=== PATIENT | female | born 2005 | race Caucasian/White ===

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

== ENCOUNTER 2023-03-20 09:00 | Outpatient (RCR) | payer OTHER, SELFPAY ==
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
--- NOTE | 2023-03-20 11:10 | BH.SGPN.GN ---
Behaviors/Verbalizations/Mental Status: []Pt alert and oriented, casually dressed and groomed. Eye contact good. Motor activity appropriate. Speech within normal limits. Affect congruent, mood depressed and anxious. Thoughts linear, logical, no signs of hallucinations or delusions. Client Response/Progress/Benefit: []Pt responded well to session AEB contributing to discussion, taking notes, and listening attentively to others. Group discussed the benefits of managed anger and anger as a secondary emotion. Pt shared perspective on personal benefits of anger as facilitating change/advocacy. Pt completed worksheet on anger triggers and personal warning signs of anger. Pt identified their biggest triggers as disrespected boundaries, people taking things without asking, and repeating themself. Appeared to benefit from increased knowledge of the anger cycle as well as personal triggers. Pt to continue IOP to challenge distorted thoughts, improve mood stability, and prevent decompensation. Narrative Note: []
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
[2023-03-21 10:10] VITALS: BP 118/77; PULSE 113
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
--- NOTE | 2023-03-21 13:05 | BH.DR.ITP ---
Initial Treatment Plan Patient Information Visit Information: ADMISSION DATE: EXPECTED LOS: 4-6 weeks Problems/Symptoms Problem #1:: Erratic moods Symptom:: Sadness, irritability, emotional outbursts, low energy, guilt, passive thoughts of , suicidal ideation Problem #2:: Anxiety Symptom:: Worry, panic attack, avoidance
--- NOTE | 2023-03-22 10:10 | BH.SGPN.GN ---
Behaviors/Verbalizations/Mental Status: []Pt alert and oriented, casually dressed and groomed. Eye contact good. Motor activity appropriate. Speech within normal limits. Affect congruent, mood euthymic and anxious. Thoughts linear, logical, no signs of hallucinations or delusions. Client Response/Progress/Benefit: []Pt was an active participant AEB providing input and was actively taking notes. Did well to participate and provide suggestions in group activity. Connected with the topic of pitfalls and listened to group discussion on internal and external barriers that prevent from choosing a healthier path to mental wellness. Group worked together to identify examples of personal internal pitfalls and pt identified hers as not communicating boundaries, inconsistency, and procrastinating. Pt benefited from group as Pt learned to better identify and normalize potential barriers to improving mental health symptoms. Pt will ?continue IOP tx to prevent decompensation, increase mood management skills, and continue to promote thought challenging. Narrative Note: []
--- NOTE | 2023-03-22 11:10 | BH.SGPN.GN ---
Behaviors/Verbalizations/Mental Status: []Pt alert and oriented, casually dressed and groomed. Eye contact fair. Motor activity appropriate. Speech within normal limits. Affect congruent. Mood anxious and dysthymic. Thoughts linear, logical, no signs of hallucinations or delusions. Client Response/Progress/Benefit: []Pt was an active participant AEB contribution to discussion, taking notes, and willingness to engage in group activity. Connected with the topic of pitfalls and listened to group discussion on internal and external barriers that prevent from choosing a healthier path to mental wellness. Group worked together to identify examples of internal pitfalls. Pt identified personal pitfalls to include: self-sabotage, inconsistency in setting boundaries, procrastination, isolation, pessimism, and not taking care of self. .Pt benefited from group as Pt learned to better identify and normalize potential barriers to improving mental health symptoms. Pt to continue IOP to increase healthy coping, challenge distortions, and prevent decompensation.
--- NOTE | 2023-03-26 09:00 | BH.SGPN.GN ---
Behaviors/Verbalizations/Mental Status: [] Eye contact is good. Motor activity is restless. Appearance is casual. Speech is Appropriate. Mood is anxious. Affect is congruent. Thoughts are linear and logical. No evidence of psychosis. Reviewed daily check in sheet and no reports of suicidal ideations or intent Client Response/Progress/Benefit: [] Pt was an active participant in group discussion. Attentive. Provided appropriate feedback. Daily symptom tracker notes 10/01 for anxiety and depression. Tells that group that she was off yesterday and spent most of her day in bed. No overt trigger noted. Reports being more fatigued in general however did go out with her friends yesterday. While she was social she identified that I don't like my friends. Discussion on the impact of unhealthy connections and fear of leaving because its comfortable. Pt has significant insight into coping skills and mental health AEB feedback given to peers, however may struggle to take action. Continuing to struggle with mood management AEB by isolating for a majority of the weekend. Benefited from group support, encouragement, and feedback. Will continue in IOP to prevent decompensation, stablize mood, increase healthy coping, and improve functioning. Narrative Note: []
--- NOTE | 2023-03-26 10:15 | BH.SGPN.GN ---
Behaviors/Verbalizations/Mental Status: []Pt alert and oriented, neatly dressed and groomed. Eye contact good. Motor activity appropriate. Speech within normal limits. Affect congruent, mood euthymic. Thoughts linear, logical, no signs of hallucinations or delusions. Client Response/Progress/Benefit: [] Pt was an active participant in group discussions and activities. Attentive during psychoeducation. Pt engaged during interactive discussion in which the group defined self-care and discussed its benefits. ?Worked with peers in a small group to identify myths related to self-care which included; Self-care means you are not productive, you have to earn self-care, and it is selfish. Pt participated in small groups where they worked to bust these self-care myths. Benefited from increased awareness of self-care, its benefits, and the consequences of not utilizing self-care strategies. Pt shared she often struggles with self-care because pt feels ?like I can only do it if it benefits others.? Will continue IOP tx to prevent decompensation, monitor mood, and increase emotional regulation skills. ? Narrative Note: []
--- NOTE | 2023-03-26 11:15 | BH.SGPN.GN ---
Behaviors/Verbalizations/Mental Status: []Pt alert and oriented, neatly dressed and groomed. Eye contact good. Motor activity appropriate. Speech within normal limits. Affect congruent, mood euthymic. Thoughts linear, logical, no signs of hallucinations or delusions. Client Response/Progress/Benefit: [] Pt engaged participant AEB completing self-assessment worksheet and providing input throughout discussion. Participated in group discussion on the various areas of self-care. Pt completed worksheet identifying current self-care practices and what self-care activities pt wants to start using. Pt selected social self-care to begin practicing more consistently. Pt plans to do this by scheduling time each day to talk to people in her life ?that are good for me.? Appeared to benefit from completing the self-care evaluation and gaining insights into current self-care practices, as well as identifying areas in which pt would like to improve upon.? Pt will continue IOP tx to prevent decompensation, monitor medication and mood, and improve daily functioning. Narrative Note: []
== END 2023-03-26 23:59 ==
LOC: BHIOP 09:00
PROVIDERS: PCP Nurse Practitioner Family; Referring Provider Psychiatry & Neurology Psychiatry; Visit Provider Psychiatry & Neurology Psychiatry
DX: F31.9 Bipolar disorder, unspecified (principal); F41.9 Anxiety disorder, unspecified
CPT/HCPCS: S9480; 90832; 90853

== ENCOUNTER 2023-03-27 07:19 | Outpatient (RCR) | payer OTHER, SELFPAY ==
--- NOTE | 2023-03-22 09:00 | BH.SGPN.GN ---
Behaviors/Verbalizations/Mental Status: [] Eye contact is good. Motor activity is appropriate. Appearance is casual. Speech is Appropriate. Mood is anxious. Affect is congruent. Thoughts are linear and logical. No evidence of psychosis. Reviewed daily check in sheet and pt reports 1/5 for suicidal thoughts and 0/5 for intent. Baseline Client Response/Progress/Benefit: [] Active participant in group discussion. Attentive. Daily symptom tracker notes 3/5 for anxiety and depression. 1/5 ? SI. Provided appropriate feedback. Emotion for today is ?guilty?. Pt spoke about some growth in the past few days however was not very specific. Reports ? I used lessons here to calm myself and come to terms with some things?. States that she is getting ?clarity? on aspects of her life which is improving her overall mental health. Increased skills have led to increased confidence to manage emotions. Reports feeling ?content? and ?with a purpose?. Progress noted per pt report. Benefited from group support, encouragement, and feedback. Will continue in IOP to stabilize mood, improve functioning, and stabilize mood. Narrative Note: []
[2023-03-27 00:43] VITALS: BP 118/77; PULSE 113
--- NOTE | 2023-03-27 09:05 | BH.SGPN.GN ---
Behaviors/Verbalizations/Mental Status: [] Pt alert and oriented, neatly dressed and groomed. Eye contact good. Motor activity appropriate. Speech within normal limits. Affect full, mood euthymic. Thoughts linear, logical, no signs of hallucinations or delusions. Reviewed pt?s symptom tracker, no risk for suicidal ideation, plan, or intent 03/27/23 Client Response/Progress/Benefit: []Pt responded well to session, attentive and engaged. Pt reports feeling stable this morning as pt was on time today for IOP and practiced self-care this morning. Pt shared she is often critical of herself and pt is trying to practice more self-compassion. Pt struggles with mood instability and emotional dysregulation, but pt is trying to follow people's advice. Pt's stressor today is her hair not doing what pt wants it to do. Pt appeared to benefit from reflecting on their application of coping skills. Pt will continue IOP tx to prevent decompensation, improve emotional regulation skills, and reduce negative thinking patterns. Narrative Note: []
--- NOTE | 2023-03-27 10:05 | BH.SGPN.GN ---
Behaviors/Verbalizations/Mental Status: [] Eye contact is good. Motor activity is appropriate. Appearance is casual. Speech is Appropriate. Mood is anxious. Affect is congruent. Thoughts are linear and logical. No evidence of psychosis Client Response/Progress/Benefit: [] Pt was an active participant in group discussions. Attentive during psychoeducation on 4 Communication Styles (Passive, Passive-Aggressive, Aggressive, Assertive). Convened in small group and participated during interactive discussion on benefits and disadvantages of each communication style. Majority of this group was based in introducing and educating on communication styles. Pt believes that he is more often passive with people that she care about. Benefited from increased education and awareness on communication styles and their impact on relationships/mental health. Will continue in IOP to prevent decompensation, stablize moood, increae healthy coping, and improve functioning. Narrative Note: []
--- NOTE | 2023-03-27 11:10 | BH.SGPN.GN ---
Behaviors/Verbalizations/Mental Status: []Client alert and oriented, casually dressed and appropriately groomed. Eye contact fair. Motor activity appropriate. Speech WNL. Affect constricted, mood anxious. Thoughts linear, logical, no signs of hallucinations or delusions. Client Response/Progress/Benefit: []Client responded well to session AEB client listening attentively to others and providing input during group discussion on the pay offs and costs of the different communication styles. Client able to connect how current communication style impacts mental health. Client engaged in activity, used assertive communication throughout in order to accomplish task. Connected with peers comments about importance of using assertive communication. Client shared she struggles with communicating her feelings when someone has hurt her feelings which often leads her to lash out. Client stated she wants to work on communication by telling three people why she lashed out at them. Client seemed to benefit from increasing awareness of healthy strategies to improve communication. Will continue IOP tx to stabilize mood, increase consistent use of healthy coping skills, and prevent decompensation.
--- NOTE | 2023-03-28 10:10 | BH.SGPN.GN ---
Behaviors/Verbalizations/Mental Status: [] Eye contact is fair. Motor activity is appropriate. Appearance is casual. Speech is Appropriate. Mood is dysthymic. Affect is constricted. Thoughts are linear and logical. No evidence of psychosis or hallucinations. Client Response/Progress/Benefit: [] Pt was an active participant in group discussion and activity. Attentive during psychoeducation. Along with peers was able to identify barriers to taking action on her mental health which included: fear of failure, the unknown, change, one's environment, past negative experiences, being passive, and fear of vulnerability. Identified several symptoms and stressors that she feels are holding her back from progress such as denial, procrastination, fear of failure, not setting goals, and avoidance. Benefited from increased self-awareness of obstacles. Will continue in IOP to improve mood stability, increase consistent use of skills, and prevent decompensation.
--- NOTE | 2023-03-28 11:10 | BH.SGPN.GN ---
Behaviors/Verbalizations/Mental Status: []Pt alert and oriented, disheveled appearance. Eye contact fair. Motor activity appropriate. Speech within normal limits. Affect congruent, mood depressed. Thoughts linear, logical, no signs of hallucinations or delusions. Client Response/Progress/Benefit: []Pt responded well to session, taking notes and participating in worksheet discussion. Pt connected with the zones of action/change and that making sustainable change comes from stepping out of one?s comfort zone into the learning zone. Pt was tearful throughout group and struggled with identifying a goal. Pt stated she had a difficult morning and this triggered a lot of negative self-talk. Pt will meet with individual therapist after group to process current symptoms and stressors. Appeared to benefit from connecting with peers instead of isolating today. Will continue IOP tx to prevent decompensation, monitor mood, and reduce negative thinking patterns. Narrative Note: []
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
--- NOTE | 2023-03-30 09:05 | BH.SGPN.GN ---
Behaviors/Verbalizations/Mental Status: [] Eye contact is good. Motor activity is appropriate. Appearance is casual. Speech is Appropriate. Mood is depressed. Affect is congurent. Thoughts are linear and logical. No evidence of psychosis. Reviewed daily check in sheet and no reports of suicidal ideations or intent. Client Response/Progress/Benefit: [] Participated at times during the group discussion. Attentive. States ? I?m sticking to my daily journal?. ? It helps me regulate my emotions and find clarity?. Also completing daily yoga. Continues to report frequent negative thoughts, erratic moods, and strong urges to isolate. At times she is able to practice opposite-action, however this is inconsistent. Journal helps to reframe and challenge thoughts however very poor self-image. She talked about significant stressors related to ?reaching out to my mom?. Very conflicted relationship and she is fearful that responding to mother my lead to decompensation. The group provided feedback and support which was beneficial. Limited progress as her erratic moods and negative self-talk continues to impact functioning. Will continue in IOP to prevent decompensation, stabilize mood, and improve functioning. Narrative Note: []
--- NOTE | 2023-03-30 10:15 | BH.SGPN.GN ---
Behaviors/Verbalizations/Mental Status: []Pt alert and oriented, neatly dressed and groomed. Eye contact good. Motor activity appropriate. Speech within normal limits. Affect congruent, mood depressed. Thoughts linear, logical, no signs of hallucinations or delusions. Client Response/Progress/Benefit: []Pt was an active?participant in small group discussion. Pt?s group worked together to identify benefits of healthy relationships which include; reduce stress, provide motivation, and fulfill needs. Group identified factors that lead to unhealthy relationships. Pt?s personal factors were ?bringing out the worst in people because of trauma bonding.? Actively participated in group experiential activity and expressed ideas to group. Benefited from increased insight and awareness of benefits of healthy relationships and factors that contribute to unhealthy relationships. Will continue IOP tx to prevent decompensation, improve emotional regulation skills, and monitor mood. Narrative Note: []
--- NOTE | 2023-03-30 11:10 | BH.SGPN.GN ---
Behaviors/Verbalizations/Mental Status: [] Client alert and oriented, casually dressed and groomed. Eye contact good. Motor activity appropriate. Speech within normal limits. Affect congruent, mood depressed, anxious. Thoughts linear, logical, no signs of hallucinations or delusions. Client Response/Progress/Benefit: [] Client responded well to session, engaged and taking notes. Worked with group to identify characteristics of healthy and unhealthy relationships. Attentive during psychoeducation about characteristics of healthy, unhealthy, and abusive relationships. Client stated within their current relationships she does well with communication and honesty. Client reported an area she would like to improve in is communication. Client shared she could so by working to share when agitated more consistently with supports rather than shutting down. Appeared to benefit from identifying area client wants to work on to build healthier relationships. Client to continue IOP to increase healthy coping skills, challenge distortions, and prevent decompensation. Narrative Note: []
--- NOTE | 2023-04-02 09:01 | BH.SGPN.GN ---
Behaviors/Verbalizations/Mental Status: []Pt alert and oriented, casually dressed and groomed. Eye contact good. Motor activity appropriate. Speech within normal limits. Affect congruent, mood content. Thoughts linear, logical, no signs of hallucinations or delusions. Reviewed pt?s symptom tracker, no suicidal ideation reported, denies plan, or active intent as of 04/02/23. Client Response/Progress/Benefit: []Pt responded well to session, open to processing with group and engaged. Pt reports feeling more present than usual this morning and explained that she is excited about an upcoming volunteer orientation. Explained signing up to volunteer with the [employer] and feels this will provide her with more structure as well as an emotional release. Additional win noted as getting to IOP group earlier than she usually does. Pt noted her current stressor as continuing to struggle with social anxiety that leads her to avoid or cancel plans. Seemed to connect with several other participants similar struggles and suggestions on what helps them. Pt appeared to benefit from supportive feedback of the group, as well as reflecting on mental health wins. Pt will continue IOP tx to promote mood stability, improve distress tolerance, and continue to improve functioning. Narrative Note: []
--- NOTE | 2023-04-02 10:15 | BH.SGPN.GN ---
Behaviors/Verbalizations/Mental Status: []Eye contact is fair. Motor activity is appropriate. Appearance is casual. Speech is Appropriate. Mood is anxious, depressed and euthymic. Affect is labile at times. Thoughts are linear and logical. No evidence of psychosis. Client Response/Progress/Benefit: []Pt participated during the group discussion. Attentive during psychoeducation and actively engaged during experiential activity. Participated during interactive discussion on aspects of fixed mindset. Group identified several aspects of fixed mindset which include: inflexible, belief that one cannot grow, absolute thinking, and all of one's skills, traits, and behaviors can't change. Group identified personal examples of fixed thinking in which pt shared personal fixed thoughts as: I'm not good enough, I don't deserve this and I am incompetent, stupid. Benefited from increased understanding of personal fixed mindsets and how they can impact mental health. Will continue in IOP to improve mood stabilization, improve view of self, and prevent decompensation.
--- NOTE | 2023-04-02 11:15 | BH.SGPN.GN ---
Behaviors/Verbalizations/Mental Status: []Pt alert and oriented, neatly dressed and groomed. Eye contact good. Motor activity appropriate. Speech within normal limits. Affect congruent, mood euthymic. Thoughts linear, logical, no signs of hallucinations or delusions. Client Response/Progress/Benefit: []Pt was an active participant during activity and discussion AEB providing some input, connecting with peers, as well as taking notes throughout. Pt did well to engage as group worked on identifying characteristics and benefits of adopting a growth mindset. Worked with fellow participants in reframing the example fixed thoughts into growth mindset thoughts. Pt worked on changing own fixed thought of ?I?m not good enough and I don?t deserve love? to growth thought of ?I wouldn?t tell a loved one this, my best is good enough.? Benefitted from discussing benefits of growth mindset and brainstorming strategies for prompting growth-mindset. Pt appeared to benefit from working in small groups to challenge own thoughts and help peers. Pt will continue IOP tx to reduce negative thinking patterns, prevent further decompensation, and increase distress tolerance skills. Narrative Note: []
--- NOTE | 2023-04-03 10:10 | BH.SGPN.GN ---
Behaviors/Verbalizations/Mental Status: []Pt alert and oriented, appropriate grooming/appearance. Eye contact fair. Motor activity appropriate. Speech within normal limits. Affect congruent, mood anxious. Thoughts linear, logical, no signs of hallucinations or delusions. Client Response/Progress/Benefit: []Pt was an engaged participant AEB taking notes, engaging in small group discussion and listening attentively to others. Attentive during psychoeducation. Contributed during interactive discussions in which peers attempted to define crisis. Pt identified some examples of potential crisis. Group also worked together to identify unhealthy responses to crisis which included: isolation, self-harm, substance abuse, avoidance, and lashing out. Pt identified personal warning signs as: irritability, self-medicating, and extreme negative thoughts. Benefited from increased understanding of crisis and awareness of personal responses to crisis. Pt will continue IOP tx to improve mood stability, increase healthy coping, and prevent decompensation.
--- NOTE | 2023-04-03 11:05 | BH.SGPN.GN ---
Behaviors/Verbalizations/Mental Status: [] Eye contact is good. Motor activity is appropriate. Appearance is casual. Speech is Appropriate. Mood is depressed. Affect is congruent. Thoughts are linear and logical. No evidence of psychosis Client Response/Progress/Benefit: [] Pt was an active participant in group discussions. Attentive during psychoeducation. In small group pt along with peers developed an active plan for their crisis warning signs. Pt identified two crisis warning signs as well as an action plan for each. One crisis warning sign is isolation with an actions plan that involved; go outside, text a loved one, play with pets, ask for help, remind self negative impact of prolonged isolation. Other warning sign was irritability, explosive with an action plan that involved; stepping away from stressor, cleaning, vent to trusted source, breathing. Benefited from increased awareness of crisis warning signs and by developing crisis intervention strategies. Will continue in IOP to prevent decompensation, increase healthy coping skills, and improve functioning. Narrative Note: []
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
--- NOTE | 2023-04-06 10:10 | BH.SGPN.GN ---
Behaviors/Verbalizations/Mental Status: []Eye contact is good. Alert and oriented. Motor activity is appropriate. Appearance is casual. grooming is appropriate. Speech is Appropriate. Mood is anxious and euthymic. Affect is congruent. Thoughts are linear and logical. No evidence of psychosis or hallucinations. Client Response/Progress/Benefit: []Client passive participate AEB providing some contributions, however did appear to listen attentively to others and taking notes throughout. The group identified the impact of emotions on communication such as change in tone, body language, shutting down, misperceiving the communication, and not being able to express oneself. Client shared struggling with shutting down and not communicating when feeling anxious or overwhelmed. During group activity, client struggled with emotion regulation at times in which she felt stress however did well to identify this and process with the group. Client benefited from session by gaining an increased understanding on the importance of managing emotions to improve daily functioning. Client will continue IOP to further improve mood stability, improve use of skills for better symptom management, and prevent decompensation. Narrative Note: []
--- NOTE | 2023-04-06 11:10 | BH.SGPN.GN ---
Behaviors/Verbalizations/Mental Status: []Pt alert and oriented, casually dressed and groomed. Eye contact fair. Motor activity appropriate. Speech within normal limits. Affect labile, mood dysthymic, anxious, and euthymic. Thoughts linear, logical, no signs of hallucinations or delusions. Client Response/Progress/Benefit: [] Pt engaged in session AEB Pt listening attentively to peers and providing input. Attentive during psychoeducation on 4 zones of regulation. Pt able to identify feelings and behaviors for each zone. Pt identified coping skills one can use to support self in each zone. Pt stated she is all over the place when asked which zone she most often experiences. Reported skills can practice when needs to manage emotions in the yellow zone include: journaling, meditation, stepping away, self-compassion, and yoga. Benefited from increased education on zones of regulation or stages of alertness for emotions and healthy coping skills to use for each zone. Will continue IOP tx to stabilize moods, challenge distorted/negative thoughts, and prevent decompensation.
--- NOTE | 2023-04-09 09:10 | BH.SGPN.GN ---
Behaviors/Verbalizations/Mental Status: [] Eye contact is poor. Motor activity is restless. Appearance is casual. Speech is Appropriate. Mood is labile. Affect is labile. Thoughts are linear and logical. No evidence of psychosis. Reviewed daily check in sheet and no reports of suicidal ideations or intent. Client Response/Progress/Benefit: [] Pt participated at times during the group discussion. Daily symptom tracker notes 5 for depression and 2/5 for anxiety. Shared with the group that she is struggling with her mental health in the past few days. Ruminating negative automatic thoughts. A mental health win was that she communicated this to her support. I was overwhelmed but I did it. Reports that she needed to take breaks however feels that I got my point across. She reports negative self-defeating thoughts this AM I'm a fuck-up. She went over a significant stressors over the past week in which she wasn't even able to do simple things. Tearful. Group attempted to reframe, provide support, and challenge negative thoughts however limited benefit. At one point pt shut-down completely and would not talk to peers. Limited progress due to poor emotional regulation. Will continue in IOP to prevent further decompensation, stablize mood, and improve functioning. Narrative Note: []
--- NOTE | 2023-04-09 10:20 | BH.SGPN.GN ---
Behaviors/Verbalizations/Mental Status: []Pt alert and oriented, casually dressed and groomed. Eye contact good. Motor activity appropriate. Speech within normal limits. Affect congruent, mood agitated and depressed. Thoughts linear, logical, no signs of hallucinations or delusions. Client Response/Progress/Benefit: []Pt participated in group discussions. Attentive during psychoeducation on stages of change. Participated during experiential activity. Interactive group discussion on why change is difficult in which group verbalized that change involves the unknown, is scary, leads to uncertainly, makes one feel vulnerable, leads to fear of failure, and triggers the pressure of success. However, pt acknowledged that change can help a person make healthier choices, but it has been hard for pt. Pt benefitted from increased awareness of stages of changes and how emotions impact change. Will continue IOP tx to prevent decompensation, monitor mood, and improve daily functioning. Narrative Note: []
--- NOTE | 2023-04-09 11:20 | BH.SGPN.GN ---
Behaviors/Verbalizations/Mental Status: []Pt alert and oriented, casually dressed and groomed. Eye contact good. Motor activity appropriate. Speech within normal limits. Affect congruent, mood anxious and content. Thoughts linear, logical, no signs of hallucinations or delusions. Client Response/Progress/Benefit: []Pt responded well to session, attentive. Did well to process activity and work with group to relate the strategies used to overcome barriers in the activity to managing change in own life. 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 Pt identified a barrier as self-doubt. Shared following through with this change will improve her confidence and sense of fulfillment. Pt?s goal today is to listen to update her resume. Pt will continue IOP tx to further improve mental health insight, promote continued communication and boundary setting with supports, and prevent decompensation. Narrative Note: []
--- NOTE | 2023-04-11 12:30 | PCM.BH.PN ---
Progress Note Progress Note: History of Present Illness/Interim History: The patient is a 17-year-old female who is seen in follow-up at the [facility] behavioral health IOP program. I last saw the patient 3 weeks ago and at that time the patient had refused to add a mood stabilizer and decrease her Effexor. The patient states that she is still depressed and experiencing scattered and erratic moods and irritability. She states that she has thought over our discussion and feels that her mood instability is limiting her ability to function well. She has low energy, hopelessness and worthlessness. She has not self harmed by hitting herself in the head since 2 to 3 weeks ago. She has passive thoughts that she would not care if she did not wake up. She still has occasional passive suicidal ideation. She denies active suicidal ideation, hallucinations, delusions, homicidal ideation. Current Psychiatric Medications: [] Effexor XR 75 mg p.o. daily (on this for 3 years, dose last changed about 4 months ago); Klonopin last taken a month ago. Mental Status Examination: [] The patient is a 17-year-old female who is very thin and seen wearing a hoodie with the [place] up initially during the interview. She is ambulatory with a normal gait and casually dressed and groomed with good hygiene. She has no psychomotor agitation or retardation. She is cooperative during the interview but her mood at times seems down or like she is ready to burst into tears but then will go back to smiling. Eye contact is poor and the patient looks down through most of the interview. Speech is normal rate and rhythm and fluent with no pressure. Mood is depressed. Affect is full and normal. Thought process is goal-directed and organized. Thought content: There is evidence of passive thoughts of but there is no evidence of suicidal ideation, plan for suicide, homicidal ideation, hallucinations or delusions. Reality testing is intact. Intelligence is average. Judgment is intact. Impulsivity is high. Insight is limited. Diagnoses: [] 1. Bipolar, NOS 2. Anxiety disorder, NOS 3. Strong cluster B traits 4. Primary support, financial and work issues Plan: [] The patient will continue the IOP program at [facility] as the structure, support, education and group therapy will hopefully prevent worsening of the patient's symptoms. She felt safe during the interview and if it anytime she does not feel safe she will let us know or go to the emergency room. Long discussion was had again about the patient's possible bipolar disorder and her mood instability. We discussed again the difference between antidepressant/antianxiety medications and mood stabilizers and in particular discussed the use of second-generation antipsychotics for bipolar depression and eric as mood stabilizers. The patient agrees that she would like to wean her Effexor and agrees to stay start Seroquel. The patient chose Seroquel because she is not sleeping well, has anxiety and wants to gain weight as her primary care doctor is wants her to gain weight. The patient agrees to decrease her Effexor to 37.5 mg p.o. daily and prescription is sent in for this. In addition she will start Seroquel 50 mg p.o. nightly for 7 days and then increase to 100 mg p.o. nightly. Discussed the fact that the patient might have intense dreams and might feel strange while changing medication and she is to let us know if if she has side effects. She will continue to follow-up with her outpatient providers and I will see the patient in follow-up in 1 to 2 weeks.
--- NOTE | 2023-04-11 14:42 | BH.MDN ---
Multi-Disciplinary Note Note 60-min Individual: Time Started:: 11:20 Date: 04/11/23 Purpose of session/treatment goals addressed:: To allow pt a safe space to verbalize and express her emotions and thoughts. Another goal was to de-escalate pt and utilize mindfulness skills. Eye Contact:: Other (intense at times, but then avoidant) Motor Activity:: Restless (pt throwing herself around on the couch at times. Often covering her face with her hoodie. ) Appearance:: Casual Speech:: Tangential, Rapid and Other (loud) Mood:: Irritable and Depressed Affect:: Labile (tearful, laughing, sobbing, aggitated) Staff Interventions:: thought challenging, mindfulness skills, strengths perspective, completed risk assessment / safety planning and other (grounding skills and emotional support) Client Response:: Pt was agitated when she entered session which was triggered by pt forgetting her phone. Pt felt angry with herself because pt had written down what she wanted to talk about and now pt cannot remember. Forgetting things/losing things is a significant trigger for pt's negative core beliefs and it results in pt criticizing herself, shutting down, and becoming emotionally reactive. Pt demonstrated this during session, pt became agitated, restless, began sobbing, and became loud. Pt expressed frustration about her upbringing, trauma, and difficulties in life that have led to pt's mental health issues. Pt shared she feels worthless and believes that she is fundamentally broken. Pt was not aggressive to therapist and responded well to emotional support. Pt benefits from receiving compassion as pt is often extremely hard on herself. Pt utilized deep breathing and used a stress ball to help regulate and calm self down. Pt shared her emotions are this dysregulated on a daily basis and that is one of the reasons pt shared she sleeps most of the day. Pt is hopeful that the mood stabilizer will be helpful as pt has never been on one before. Pt also encouraged to spend time with her cat as this helps pt calm down as well. Discussed additional support options pt could explore as one of pt's stressors today is her lack of support. Pt will be given a handout for [employer] as well. Risks/Concerns:: Pt reports having suicidal ideations that are passive. Protective factors include cat and dad. Denies active SI, plan, or intent. Pt demonstrating significant emotional dysregulation in session and reports this is what happens every day. IOP treatment team is hopeful the addition of Seroquel will help with mood stability. Progress Toward Goals/Plan:: Pt's progress is limited, but pt is consistent with attendance and engaged in treatment. Pt's mood instability is impacting her functioning at home and at IOP, but pt was prescribed Seroquel today which hopefully will help stabilize pt's mood. Pt endorses erratic moods, irritability, crying spells, thought blocking, increased sleep, inability to verbalize thoughts and emotions, severe agitation, worthlessness, feelings of being a burden, and passive SI. Pt plans to start her new medication tonight and will meet with therapist again tomorrow. Pt will continue IOP tx to prevent decompensation, improve daily functioning, and monitor medication changes. Time Stopped:: 12:40
--- NOTE | 2023-04-12 09:05 | BH.SGPN.GN ---
Behaviors/Verbalizations/Mental Status: []Pt alert and oriented, casually dressed and groomed. Eye contact good. Motor activity appropriate. Speech within normal limits. Affect labile, mood anxious, agitated, and depressed. Thoughts linear, logical, no signs of hallucinations or delusions. Reviewed pt?s symptom tracker, no suicidal ideation reported, denies plan, or active intent as of 04/12/23. Client Response/Progress/Benefit: []Pt responded well to session, open to processing with group and engaged. Pt reports feeling irritated this morning because she was unable to identify her emotion prior to checking-in. 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 Discussed looking forward to continuing to take steps towards this goal as it is something she has wanted to do for some time. Current stressor noted as ongoing difficulties in understanding and processing her own thoughts. Pt appeared to benefit from supportive feedback of the group, as well as reflecting on mental health wins. Pt will continue IOP tx to promote mood stability, improve self-compassion, and continue to prevent decompensation. Narrative Note: []
--- NOTE | 2023-04-12 10:10 | BH.SGPN.GN ---
Behaviors/Verbalizations/Mental Status: []Eye contact is good. Motor activity is appropriate. Appearance is casual. Speech is Appropriate. Mood is present. Affect is congruent. Thoughts are linear and logical. No evidence of psychosis. Client Response/Progress/Benefit: []Pt was an active participant in group discussion. Attentive during psychoeducation on SMART goals. Participated in experiential activity. Engaged during interactive discussion on the benefits of setting goals which group identified as; increase self-worth, increase confidence, can motivate us, can lead to personal growth, and can give one a sense of purpose. Participated during interactive discussion on possible obstacles to obtaining goals and pt self-identified barriers as being disorganized and making negative predictions about myself. Benefited from increased understanding of benefits of goals, obstacles to obtaining goals, and methods for setting appropriate goals (SMART goals). Will continue in IOP to prevent decompensation, monitor mood and medication changes, and improve daily functioning. Narrative Note: []
--- NOTE | 2023-04-12 15:09 | BH.MDN_ITS ---
Multi-Disciplinary Note Note 45-min Individual: Time Started:: 11:13 Date: 04/12/23 Purpose of session/treatment goals addressed:: To address pt's marijuana use and identify ways to reduce use and implement healthy coping skills. Eye Contact:: Good Motor Activity:: Restless Appearance:: Casual Speech:: Tangential Mood:: Other (erratic) Affect:: Congruent Thoughts:: Racing, Flight of ideas and No evidence of hallucinations/delusions noted Staff Interventions:: thought challenging, CBT techniques, mindfulness skills, strengths perspective, goal setting and other (discussed ways to reduce marijuana use.) Client Response:: Pt responded well to session, open to meeting with therapist. Pt's affect was brighter today and pt was less agitated. Pt brought her journal today and pt had her phone which helped pt feel more focused. Pt stated she wants to address her marijuana use as pt sees that it is keeping pt from utilizing healthy coping skills to manage anxiety and it reduces her motivation. Pt has been smoking for years and admits that it is excessive, but pt shared her use was even more extreme in the past. Pt identified some rules for herself to reduce smoking which included not taking her vape pen to work, only smoking flower at home instead of using the vape, doing something calming first before she smokes, and reducing the number of times she vapes in the morning. Pt shared belief these are reasonable goals/rules to have for herself. Pt willing to try the Delay, Distract, Decide skill which will encourage pt to practice a healthy distraction and delay turning to her vape to instantly cope with anxiety. 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 Pt became angry with herself during brainstorming and shared there is a voice in my head that says I hate myself. Pt receptive to gentle thought challenging from therapist. Pt understands that her negative core beliefs and self-talk will take time and conscious effort to change. Pt agrees to start by working on the goal discussed above and taking her new medications before doing too much work on identifying and challenging core beliefs. Risks/Concerns:: Pt denies any active SI, plan, or intent as of 04/12/23. Pt's mood is still erratic, but less intense than it was yesterday during individual session. Pt has not yet picked up her new medication and was encouraged to do this today. Progress Toward Goals/Plan:: Pt's mood is improved today, but pt is still easily triggered and self-reported I just get so overwhelmed so easily. Pt was not tearful during session today which was positive, but she did shut down and become angry with herself at one point. Pt continues to endorse an erratic mood, racing thoughts, sleep issues, passive SI, lack of concentration, worthlessness, and difficulty functioning. Pt is ready to reduce her marijuana use as pt can see it is an issue for managing her anxiety and hindering motivation levels. 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 Pt will meet with therapist twice next week due to severity of pt's symptoms. Pt will continue IOP tx to prevent further decompensation and improve daily functioning. Time Stopped:: 12:00
--- NOTE | 2023-04-12 15:11 | BH.MTP_ITS ---
Treatment Plan Review Demographics Date of Admission:: 03/20/23 Date of Treatment Plan Review:: 04/12/23 Admitting Diagnoses:: Bipolar, NOS; Anxiety disorder, NOS; Strong cluster B traits Current Diagnoses:: Bipolar, NOS; Anxiety disorder, NOS; Strong cluster B traits Patient Status Patient's Response to Treatment:: Pt's response to treatment has been variable. There are times when pt is engaged in group sessions, but pt's engagement is mostly inconsistent. Pt struggles with attendance, often getting to group at least 30 minutes late. Pt also appears to be distracted during group sessions AEB pt's restlessness, talking to self, and at times becoming highly agitated. During individual sessions, pt often becomes loud and has a hard time controlling her body and emotions. Pt admits that she is very easily triggered which makes it challenging to address any unhealthy coping skills or thought patterns pt is using. Status of Current Problems and Symptoms: Symptoms are ongoing and have not resolved since admission. Pt's mood instability, low distress tolerance, and negative thinking patterns are impacting pt's overall functioning and her ability to engage in group. Pt had declined getting on a mood stabilizer, but pt is now receptive. Progress Problem #1: Problem Name:: depression, worthlessness, SI, hopelessness, and irritability Status of Goals:: Objective 1- not complete. Pt can identify many coping skills to help with her depression, anger, and SI. Pt stated that when she gets in negative mindset, pt tells herself that she does not want to get better which results in pt not using these skills. Objective 2- not complete. Pt can identify her negative thinking patterns and unhelpful self-talk statements. However, pt?s core beliefs are so negative that pt becomes highly agitated in session whenever challenging thoughts or giving herself kindness is discussed. Team Recommendations:: Pt was recently prescribed Seroquel to help stabilize pt's mood and improve sleep. Treatment tx encourages pt to consis tently take Seroquel as well as reduce marijuana use. Treatment tx also recommends that pt continue working on her tx goals as pt's scores have not decreased and pt is having a hard time regulating emotions during individual sessions. Problem #2: Problem Name:: Pt will reduce anxiety, avoidance, emotional dysregulation,and ruminations. Status of Goals:: Objective 1- not complete. Pt can identify triggers and warming signs for anxiety, mood dysregulation, and ruminations. Pt admits that she struggles with application of skills. Pt is receptive to getting back into hobbies she enjoyed that once helped regulate pt?s mood. Objective 2- not complete. Pt?s low distress tolerance continues to impact her functioning at IOP and at home. Team Recommendations:: Treatment tx recommends that pt continue working on her tx goals as pt's scores have not decreased and pt is having a hard time regulating emotions during individual sessions. Treatment tx also recommends that pt reduce marijuana use as this could be contributing to pt's memory issues. Pt also could benefit from getting tested for AHDH as pt has a very hard time functioning due to inability to focus on tasks, fidgeting, and difficulty concentrating. Pt was given information for [id number].
--- NOTE | 2023-04-16 10:10 | BH.SGPN.GN ---
Behaviors/Verbalizations/Mental Status: []Client alert and oriented, disheveled in appearance. Eye contact fair. Motor activity appropriate. Speech within normal limits. Affect labile, mood depressed and anxious. Thoughts linear, logical, no signs of hallucinations or delusions. Client Response/Progress/Benefit: []Client was a mostly passive participant in group discussions and activity. Attentive during psychoeducation. Client appeared to engage in activity in which group was able to make connections about how can be easier to find positives in others compared to self. Attentive to interactive discussion on the definition of perspective, how perspective is formed, and why perspective is important in treatment. Client shared her perspective towards treatment today is negative. Stated she is feeling dismissive, stubborn, and close minded today. Connected that current perspective won't get her anywhere. Stated she is being reckless and impulsive. Progress limited. Client struggling with mood instability and difficulty applying skills. Will continue in IOP to improve daily functioning, improve mood stability, and prevent decompensation.
--- NOTE | 2023-04-16 13:50 | BH.MDN_ITS ---
Multi-Disciplinary Note Note 45-min Individual: Time Started:: 09:30 Date: 04/16/23 Purpose of session/treatment goals addressed:: To provide emotional support and practice emotion regulation skills. Another goal was to assess risk. Eye Contact:: Intense Motor Activity:: Restless (sliding off the couch at times) Appearance:: Disheveled Speech:: Tangential, Rapid and Other (loud and yelling at times) Mood:: Irritable and Depressed Affect:: Labile Thoughts:: Racing and Other (pt reports difficulty verbalizing her emotions and often describes her thoughts as it's like screaming in my head.) Staff Interventions:: thought challenging, mindfulness skills, strengths perspective and other (used calming tone to help pt de-escalate. Helped pt sign up for services at [facility] [id number]) Client Response:: Pt entered session calm, but when asked how pt was doing, pt shared I'm better today but I've been absolutely terrible. Pt became agitated and shared that the weekend was terrible and that she had a mental breakdown last night. Pt shared when she woke up she told herself that I have to be a different person today who gives no fucks. Pt reported over the weekend a boy she was in a casual relationship with stopped talking to her when pt set a boundary with him. Pt became angry and shared that she is very frustrated with her mental health and nothing working despite putting everything I can into myself for years. Pt stated she is having suicidal thoughts today and pt shared she has felt this way most of her life. Pt shared that the thoughts have been worse in the past, but she is just feeling very hopeless right now, so pt is struggling to reframe her thinking. Pt took some deep breaths and this helped calm down pt. Pt receptive to gentle thought challenging by therapist and could identify times when she has felt this way in the past and been resilient. Discussed the potential positives of her new medication which pt started on Sunday. Pt became frustrated with herself for missing a day and shared that's even with my dad reminding me and setting an alarm. Pt shared that's why I think I'm neurodivergent and pt was receptive to learning about [facility] [id number]. Pt looked up the website and pt interested in ADHD testing, medication management, and counseling. Pt feels that her potential ADHD is making her mood disorder worse because pt cannot remember things, she is constantly distracted, and she is unable to focus on tasks. Pt completed the form with therapist. Pt left session less agitated and tearful, but pt was still depressed and low energy. Risks/Concerns:: Pt reports having suicidal ideations today triggered by a recent breakup over the weekend and feeling constantly overwhelmed. Pt shared that she is tired of doing everything for myself and it not working. Pt denies that she has any intent or plans. Pt stated having suicidal ideations are baseline and they have been worse in the past. reports ability to maintain safety today. Cat and dad are protective factors. Progress Toward Goals/Plan:: Pt's progress is limited, but pt is consistent with attendance and engaged in treatment. Pt does have difficulty getting to IOP on time and this is a trigger for pt's mood instability. Pt reported she began Seroquel, but did not take it every day this weekend. Pt endorses erratic moods, irritability, crying spells, thought blocking, increased sleep, inability to verbalize thoughts and emotions, severe agitation, worthlessness, feelings of being a burden, and passive SI. Pt will continue IOP tx to prevent decompensation, improve daily functioning, and monitor medication changes. Time Stopped:: 10:10
--- NOTE | 2023-04-16 13:56 | BH.COMM ---
Communication Note Communication with Client Communication Note: Therapist met with pt to check-in as she appeared visibly dysregulated during group. Pt?s individual therapist was running group and therefore was not available to meet with pt. Pt shared feeling overwhelmed and emotionally exhausted due to several ongoing stressors in her life. Pt reports a hx of trauma and difficulties with emotion regulation when feeling triggered. Therapist provided emotional validation and support as pt vented frustrations and processed her emotions. At one point pt indicated feeling as though things would be easer if she were not alive. Therapist further assessed for risk and pt indicated ?I don?t want to be alive, but I don?t want to kill myself. I wouldn?t do that?. Denies current active thoughts of suicide or intent, denies plan. Reports ability to maintain safety and willingness to contact a support and seek emergency crisis services if unable to maintain safety. Willing to practice grounding and deep breathing skills with therapist. Pt regulated and calm by end of discussion. Identified a plan to engage in song writing this afternoon as she feels this would provide a healthy outlet for emotional release. Future oriented and plans to attend group sessions tomorrow. Encouraged to allow pt's primary therapist to reach out to her father to discuss additional support strategies. Pt declined at this time and this will be revisited with primary therapist in the future.
--- NOTE | 2023-04-17 09:05 | BH.SGPN.GN ---
Behaviors/Verbalizations/Mental Status: [] Eye contact is good. Motor activity is appropriate. Appearance is casual. Speech is Appropriate. Mood is depressed/irritable. Affect is congruent. Thoughts are linear and logical. No evidence of psychosis. Reviewed daily check in sheet and no reports of suicidal ideations or intent. Client Response/Progress/Benefit: [] Pt participated at times during the group discussion. Attentive. Daily symptom tracker notes 08/31 for depression, irritability, and anxiety.. Reports to the group that she is spiraling stating it just happens sometimes, however I'm really really trying. She continues to attempt to use skills and has noticed benefits from her efforts. Forced herself to garden yesterday which allowed her to be mindful and distract her from her negative thoughts. She also cancelled an appointment and managed not to ruminate on it. Identified this as a win as in recent weeks she would have seen cancelling as evidence that she is a failure. Strong urges to move away as [place] which is not conducive to her personality. Some progress noted as she reports benefits from using skills while being in distress. Benefited from group support, encouragement, and feedback. Will continue in IOP to maintain safety, stabilize mood, and improve functioning. Narrative Note: []
--- NOTE | 2023-04-17 10:10 | BH.SGPN.GN ---
Behaviors/Verbalizations/Mental Status: []Eye contact is good. Motor activity is appropriate. Appearance is casual. Speech is Appropriate. Mood is euthymic. Affect is congruent. Thoughts are linear and logical. No evidence of psychosis. Client Response/Progress/Benefit: []Pt was an active participant in group discussions. Engaged and provided feedback with group on defining anxiety. Along with peers, pt worked to identify the benefits of anxiety. Participated during interactive discussion on how anxiety impacts one physically, cognitively, and behaviorally. Completed worksheet on how anxiety impacts pt physically, cognitively, and behaviorally. Pt shared physically pt experiences shaking, acid reflux, and headaches. Benefited from increased insight into anxiety's benefits and how diagnosable anxiety impacts functioning. Will continue in IOP tx to promote application of distress tolerance skills and thought challenging, and further increase mood stability. Narrative Note: []
--- NOTE | 2023-04-17 11:10 | BH.SGPN.GN ---
Behaviors/Verbalizations/Mental Status: []Pt casually dressed and groomed. Eye contact fair. Motor activity restless. Speech within normal limits. Affect constricted, mood depressed and anxious. Thoughts linear, logical, no signs of hallucinations or delusions. Client Response/Progress/Benefit: []Pt was a passive participant in full group discussion, however did take notes, attentive to others, and showed increased engagement in small group discussion. Pt identified anxiety safety behaviors for self to include: smoking marijuana, staying in bed, ignoring stressors, isolating, and avoidance. Attentive during psychoeducation on mindfulness and ways to utilize mindfulness techniques to improve anxiety management. The group receptive to learning about belly breathing and grounding tools. Engaged and attentive during group brainstorm of healthy anxiety reduction skills including thought challenging and behavioral changes. Appeared to benefit from practicing in the moment coping skills and increasing repertoire of anxiety management skills. Pt stated five senses, grounding, and exposure therapy as skills would like to practice over the next week. Pt will continue IOP tx to improve mood stability, increase healthy coping, challenge distortions, and prevent decompensation.
--- NOTE | 2023-04-19 09:04 | BH.SGPN.GN ---
Behaviors/Verbalizations/Mental Status: [] Pt eye contact good, casually dressed, motor activity appropriate, speech normal rate and tone, mood euthymic and hopeful, congruent affect, thoughts linear and intact, no evidence of delusions or hallucinations. Per pt's symptom tracker, no report of SI, plan, or intent as of this date. Client Response/Progress/Benefit: [] Client responded well to session as evidenced by listening attentively to others and sharing thoughts and feelings. Client reported mental health positive as making her bed this morning and shared that doing so always helps to start her day on a more positive note. Additional win noted as following through with establishing a boundary with a toxic person in her life. Discussed increased motivation to continue with it as a result. 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 Shared this should be temporary as she anticipates an opportunity to switch shifts in a few weeks. Seemed to benefit from support from peers. Client to continue IOP to continue use of healthy coping skills, maintain mood stability, and prevent decompensation. Narrative Note: []
--- NOTE | 2023-04-19 10:12 | BH.SGPN.GN ---
Behaviors/Verbalizations/Mental Status: []Pt alert and oriented, disheveled appearance. Eye contact good. Motor activity appropriate. Speech within normal limits. Affect constricted, mood depressed. Thoughts linear, logical, no signs of hallucinations or delusions. Client Response/Progress/Benefit: []Pt was an active participant in group discussions. Attentive during psychoeducation on 4 types of conflict styles (Competing, Collaborating, Avoiding, and Accommodating). Worked with group to define conflict and identify how conflict is helpful. With peers identified barriers to addressing or managing conflict which included: not wanting to hurt others, lack of communication skills, and cognitive distortions. Pt believes they use the accommodating style the most. Pt shared belief that they have had to be accommodating as a survival mechanism growing up, but now pt has a hard time sharing/identifying her own needs. Benefited from group due to increase insight and awareness of benefits to conflict, conflict styles, and obstacles to managing conflict. Will continue IOP tx to prevent decompensation, maintain safety, and gain healthy coping skills. ??? Narrative Note: []
--- NOTE | 2023-04-19 11:10 | BH.SGPN.GN ---
Behaviors/Verbalizations/Mental Status: [] Eye contact is good. Motor activity is appropriate. Appearance is casual. Speech is Appropriate. Mood is depressed/irritable. Affect is congruent. Thoughts are linear and logical. No evidence of psychosis. Client Response/Progress/Benefit: [] Pt was an active participant in group discussions and activity. Attentive during psychoeducation. Pt was engaged during the group activity and practiced conflict resolutions skills with an emphasis on stepping outside her typical conflict style. Along with peers was able to reflect on what conflict resolution skills she used during the activity. Pt was visibly overwhelmed with group task of decision-making and conflict resolution and at one point had to walk away and use breathing. Pt chose to continue to work on the conflict resolution skill of not stonewalling for the rest of the week. Benefited from practicing conflict resolution skills. Will continue in IOP to prevent decompensation, stabilize mood, increase healthy coping, and to improve functioning. Narrative Note: []
--- NOTE | 2023-04-19 14:45 | BH.MDN_ITS ---
Multi-Disciplinary Note Note 60-min Individual: Time Started:: 12:15 Date: 04/19/23 Purpose of session/treatment goals addressed:: To provide emotional support and practice emotion regulation skills. Eye Contact:: Other (when dysregulated eye contact was intense or avoidant. When calm, eye contact was good.) Motor Activity:: Restless and Other (throwing body around at times) Appearance:: Casual Speech:: Pressured, Rambling and Other (loud) Mood:: Anxious, Irritable and Depressed Affect:: Labile Thoughts:: Racing and Other (pt discussed hearing voices that pt describes as alters. No command hallucinations) Staff Interventions:: thought challenging, mindfulness skills (practiced g rounding/stimming skills), strengths perspective and other (provided emotional support; validated; offered emotional safety and nonjudgmental stance) Client Response:: Pt was agitated, irritable, and had verbal outbursts during session, but by the end of session pt was calm. Pt was shared feeling angry, depressed, and hopeless because of pt's mood instability and a recent trigger with a boy pt was talking to. Pt became loud and was encouraged to utilize stimming and self-soothing techniques. When therapist address the recent escalation in verbal outbursts, pt shared she does this in session because she feels safe. Pt stated this is what I'm like all the time, I choose to not be like this and I hate myself. Pt receptive to emotional support from therapist as well as therapist practicing self-compassion strategies. Pt opened up about her belief that she has dissociative identity disorder and pt has felt this way since she was a child. Pt told therapist about three possible alters pt has including a Shruthi, Lam, and It. Pt stated they all have a job and pt feels like It is pt's trauma schwartz and It can be aggressive physically and ve rbally. Pt shared belief that this therapist has not met it but pt's father has. Pt expressed that she felt validated by therapist and appeared to benefit from talking about her alters. Pt shared being able to talk about them without judgement has helped pt feel less overwhelmed today. Pt receptive to learning about different self-soothing techniques and practiced stimming in session. Risks/Concerns:: Pt denies any active SI, plan, or intent. Pt does report chronic suicidal ideations that change in intensity and frequency depending on pt's mood and stressors. Pt reports ability to maintain safety today. Progress Toward Goals/Plan:: Pt continues to make limited progress. Pt has been on Seroquel since 04/11/23 and pt was supposed to go up to 100mg but pt has not yet. Pt stated little benefit from the Seroquel yet, except for sleep is improving. Pt's mood continues to be erratic and pt is consistently getting agitated in individual sessions. Pt endorses erratic moods, irritability, crying spells, thought blocking, increased sleep, inability to verbalize thoughts and emotions, severe agitation, worthlessness, feelings of being a burden, and passive SI. Therapist talked with pt about pt's verbal outbursts in sessions and pt understands that pt will need to continue working on regulating her emotions. Pt will continue IOP tx to prevent decompensation, improve daily functioning, and monitor medication changes. Time Stopped:: 13:15
--- NOTE | 2023-04-23 10:10 | BH.SGPN.GN ---
Behaviors/Verbalizations/Mental Status: [] Eye contact is good. Motor activity is appropriate. Appearance is casual. Speech is Appropriate. Mood is anxious. Affect is constricted. Thoughts are linear and logical. No evidence of psychosis. Client Response/Progress/Benefit: [] Client was an attentive during interactive group discussions by writing notes and sharing when prompted. Attentive during psychoeducation on the six types of boundaries (physical, emotional, intellectual, sexual, time, and material) AEB note-taking. Along with peers contributed to interactive discussion on defining what a boundary is in mental health. Client along with peers identified challenges to setting boundaries which included; fear of other's response, guilt, fear of losing relationships, and lack of confidence. Client along with peers identified the benefits to setting boundaries. Client shared that self-doubt keeps her from setting boundaries because she isn't sure if the boundary she wants to set is valid. Client benefited from increased awareness and insight on the importance/benefit to setting health boundaries. Will continue in IOP to stabilize moods, improve emotion regulation, and prevent decompensation.
--- NOTE | 2023-04-23 11:10 | BH.SGPN.GN ---
Behaviors/Verbalizations/Mental Status: []Pt alert and oriented, disheveled. Eye contact fair. Motor activity appropriate. Speech within normal limits. Affect constricted, mood agitated. Thoughts linear, logical, no signs of hallucinations or delusions. Client Response/Progress/Benefit: []Pt responded well to session, but at times appeared overwhelmed and overstimulated. Pt attentive during psychoeducation on the different boundary styles. Pt reports having rigid boundaries which results in pt being emotionally distant and isolated. Able to connect impact current boundary styles impact on functioning. Pt was given a handout on strategies for healthy boundary setting. Appeared to benefit from increasing insight to boundary setting and the impacts on mental health. Pt wants to work on writing out her needs and clearly identifying boundaries. Will continue IOP tx to prevent decompensation, monitor medication changes and mood, and improve emotional regulation skills. Narrative Note: []
--- NOTE | 2023-04-24 15:25 | BH.MDN_ITS ---
Multi-Disciplinary Note Note 60-min Individual: Time Started:: 10:35 Date: 04/24/23 Purpose of session/treatment goals addressed:: To address de-escalate crisis and help pt feel safe to process current emotions. Eye Contact:: Poor and Intense Motor Activity:: Restless and Other (pt threw herself on the floor at one point during session. Stomping and covering her face.) Appearance:: Disheveled Speech:: Rapid and Other (loud-yelling at times) Mood:: Irritable and Depressed Affect:: Labile Thoughts:: Racing and Other (pt has reported belief she has dissociative identity disorder. Pt appears internally stimulated at times, especially when highly stressed. Pt describes her thinking patterns as like I constantly have to babysit my brain. ) Staff Interventions:: mindfulness skills, rapport building, strengths perspective, completed risk assessment / safety planning and other (used de- escalation strategies including remaining calm, focusing on safety, and helping pt see options for her future. IOP director, Zak, came in at one point due to pt's yelling and helped de-escalate the situation.) Client Response:: Pt entered session agitated. IOP university services program associate shared pt was pacing during group and went outside to yell at one point. Pt shared there are so many stressors going on in her life and pt feels constantly overwhelmed. Pt describes herself as an empath and pt shared she feels her emotions so intensely which makes pt want to end the pain. Pt became agitated and restless sharing that she is angry with her life, angry that she has to do all the work, angry that after 10 years nothing is changing or working, and angry with herself. Pt had an outburst and ended up on the floor sobbing. Pt shared she is tired and that this is how I feel constantly, I have to choose not to feel this way. IOP director, Zak, joined session due to noise and helped therapist de-escalate pt. Pt responded well to the therapists using encouragement, kindness, and direct communication. Discussed the importance of pouring pt's energy into her hobbies and finding a community that supports her. Pt was interested in preparing for the supermoon tomorrow and this seemed to give pt future orientation. Pt also shared she thinks she can reach out to an old swimming pool servicer that shares some of pt's interests to build support. Pt was no longer tearful and she was smiling by the end of session. Pt reported she was able to keep herself safe today. Pt shared that her emotions are so strong which is hard but also a protective factor. Pt stated I feel so miserable, but then I also feel so wonderful sometimes and this helped pt challenge her perspective. Pt was asked if this therapist could contact her father, but pt did not want this. Pt will be seen again Sunday04/27/23. Risks/Concerns:: Pt reported she is highly overwhelmed and shared I want to kill myself triggered by several recent stressors and long-term mood instability that pt feels will not change. Once pt was calmed down, pt denied that she actually wants to kill herself and denied any active SI, plan, or intent. Pt ended the session much calmer and future oriented. Pt is still not on a therapeutic dose of Seroquel, so pt's thoughts continue to race and her mood is unstable. Pt continues to smoke marijuana daily and pt admits that I don't want to get better which is a barrier to mood stability. Progress Toward Goals/Plan:: Pt's progress is limited, and within the last week pt's engagement in group has decreased due to low distress tolerance. Pt continues to have difficulty getting to IOP on time and pt is easily triggered in group sessions which interferes with her ability to focus. Pt reported she began Seroquel, but she has not increased her dose to 100mg yet. Pt endorses erratic moods, irritability, crying spells, thought blocking and racing thoughts, increased sleep, inability to verbalize thoughts and emotions, severe agitation with outbursts seen in individual sessions, anger, worthlessness, feelings of being a burden, and passive SI. Pt admits that she is not utilizing healthy coping skills outside of IOP tx. Pt will continue IOP tx to prevent decompensation, maintain safety, and monitor medication changes. Time Stopped:: 11:35
== END 2023-04-26 23:59 ==
LOC: BHIOP 07:19
PROVIDERS: PCP Nurse Practitioner Family; Referring Provider Psychiatry & Neurology Psychiatry; Visit Provider Psychiatry & Neurology Psychiatry
DX: F31.81 Bipolar II disorder (principal); F41.9 Anxiety disorder, unspecified
CPT/HCPCS: S9480; 90834; 90837; 90853

== ENCOUNTER 2023-04-27 08:29 | Outpatient (RCR) | payer OTHER, SELFPAY ==
[2023-04-27 00:39] VITALS: BP 118/77; PULSE 113
--- NOTE | 2023-04-27 11:15 | BH.SGPN.GN ---
Behaviors/Verbalizations/Mental Status: []Pt alert and oriented, casually dressed and groomed. Eye contact good. Motor activity restless at times. Speech within normal limits. Affect congruent, mood focused and agitated at times. Thoughts linear, logical, no signs of hallucinations or delusions. Client Response/Progress/Benefit: []Pt was an active participant in group discussions and experiential activity. Attentive during psychoeducation on the 4 A's (Avoid, adapt, alter, accept) of coping with stress as well as strategies to identify stressors in which one has no control, little control, or a great deal of control over. Was able to identify the connection between the experimental activity and utilization of stress management skills. Pt became agitated and had to step outside for a moment and when pt returned to the activity she did well. Assistant Track And Field Coach highlighted this and reminded pts it is helpful to do this at times in life. The group linked effective communication and opposite action as the biggest strategies for managing stressors. Benefited from increased awareness of stress management strategies. Will continue in IOP to monitor medication changes and mood while increasing distress tolerance skills. ? Narrative Note: []
--- NOTE | 2023-04-27 14:25 | BH.MDN ---
Multi-Disciplinary Note Note 30-min Individual: Time Started:: 10:20 Date: 04/27/23 Purpose of session/treatment goals addressed:: To work on goal #1 of pt's tx plan. Another goal was to provide pt resources for social activities. Eye Contact:: Good Motor Activity:: Restless Appearance:: Casual Speech:: Soft Mood:: Irritable and Depressed Affect:: Constricted Thoughts:: Racing, Circular and No evidence of hallucinations/delusions noted Staff Interventions:: CBT techniques, mindfulness skills, strengths perspective, goal setting and other (gave resources for social events pt is interested in. ) Client Response:: Pt responded well to session, open to meeting with therapist. Pt and therapist ended session yesterday discussing social supports and options pt can explore to increase social connection and sense of belonging. Pt's interests include baking, plants, music, and [employer]. Pt receptive to the resources provided by therapist which included several places pt could go to engage in these hobbies. Pt feels like going to one of these places is realistic and could offer some idalia and interest. Pt shared she feels better than she did yesterday, a little bit more hopeful that things could change. Pt is still irritable and agitated, but pt did not have any outbursts in session. Pt encouraged to continue practicing grounding skills during group today when pt notices agitation. Risks/Concerns:: Pt is less agitated today and reporting no active suicidal ideations. Pt more receptive to feedback and ideas today. Pt reports ability to maintain safety. Pt still has not increased her Seroquel to 100mg. Pt will see Dr. Servin on 05/02/23. Progress Toward Goals/Plan:: Pt's progress is limited, but today pt showed some progress in her ability to regulate emotions during group. Pt continues to have difficulty getting to IOP on time and pt is easily triggered in sessions which interferes with her ability to focus. Pt reported she began Seroquel, but she has not increased her dose to 100mg yet. Pt endorses erratic moods, irritability, crying spells, thought blocking and racing thoughts, increased sleep, inability to verbalize thoughts and emotions, severe agitation with outbursts seen in individual sessions, anger, worthlessness, feelings of being a burden, and passive SI. Pt admits that she is not utilizing healthy coping skills outside of IOP tx. Pt will continue IOP tx to prevent decompensation, maintain safety, and monitor medication changes. Time Stopped:: 10:45
--- NOTE | 2023-05-01 09:05 | BH.SGPN.GN ---
Behaviors/Verbalizations/Mental Status: []Pt alert and oriented, casually dressed and groomed. Eye contact good. Motor activity appropriate. Speech within normal limits. Affect congruent, mood euthymic and anxious. Thoughts linear, logical, no signs of hallucinations or delusions. Reviewed pt?s symptom tracker, no suicidal ideation reported, denies plan, or active intent as of 05/01/23. Client Response/Progress/Benefit: [] ?Pt responded well to session, open to processing with group and engaged. Pt reports feeling uneasy this morning. Shared a current mental health ?win? as making progress with getting back into a self-care routine. Share spending time doing yoga, baking, and journaling. Pt expressed feeling more like herself as a result. Additional ?win? noted as making sure she is eating 3 meals a day as well. Shared struggling to remember to eat at times but has been able to successfully do so for the past few days. Pt went on to discuss a current stressor as feeling lonely during the day as her father has been spending less time at home due to dating someone new. Pt shared trying to communicate this with him however he was gone when she got up this morning. Shared struggling with deciding how to address the situation and ensure her needs are met as well. Pt appeared to benefit from supportive feedback of the group, as well as reflecting on mental health wins. Pt will continue IOP tx to promote mood stability, improve consistency of self-care, and continue to improve functioning. Narrative Note: []
--- NOTE | 2023-05-01 10:10 | BH.SGPN.GN ---
Behaviors/Verbalizations/Mental Status: [] Client alert and oriented, casually dressed and groomed. Eye contact fair. Motor activity appropriate. Speech within normal limits. Affect labile, mood depressed at times and euthymic at times. Thoughts linear, logical, no signs of hallucinations or delusions Client Response/Progress/Benefit: [] Client was an active participant in group discussion and experiential activity. Attentive during psychoeducation on resilience. Participated in interactive discussion with peers on the definition of resilience and where it comes from. Group identified what can impact resilience. Identified barriers to resilience to include: extreme thinking, outside comfort zone, learned helplessness, and repeated traumas/hardships. Worked well with peers in small group in which they identified factors that contribute to resilience. Stated when she is struggling with being resilient she tends to take on more tasks then can handle and refuse to ask for help. Benefited from increased awareness of resilience and the factors that contribute to building resilience. Will continue in IOP to improve mood stability, increase consistent use of healthy coping, and prevent decompensation.
--- NOTE | 2023-05-01 11:10 | BH.SGPN.GN ---
Behaviors/Verbalizations/Mental Status: []Pt alert and oriented, casually dressed and groomed. Eye contact good. Motor activity appropriate. Speech within normal limits. Affect congruent, mood euthymic. Thoughts linear, logical, no signs of hallucinations or delusions. Client Response/Progress/Benefit: []Pt responded well to session AEB completing the resilience worksheet provided. Pt actively participated in the discussion and worked cooperatively with group to identify strategies to enhance each of the components discussed. Pt reports belief they already use resilience trait of ?avoid seeing crises as insurmountable problems? which pt shared helps her remind herself that she can overcome a lot of hardships. Pt discussed that they could work on making connections and having a healthier support system.? Pt seemed to benefit from discussing strategies for improving personal resilience and identifying resilience traits Pt already possesses. Will continue IOP tx prevent decompensation, improve daily functioning, and increase self-compassion. Narrative Note: []
--- NOTE | 2023-05-02 10:10 | BH.SGPN.GN ---
Behaviors/Verbalizations/Mental Status: [] Eye contact is good. Motor activity is restless at times. Appearance is casual. Speech is Appropriate. Mood is anxious/irritable. Affect is congruent. Thoughts are linear and logical. No evidence of psychosis. Client Response/Progress/Benefit: [] Client responded well to session, attentive to discussions, taking notes. Attentive during psychoeducation about social and perceived stigma. Participated during interaction discussions in which group defined stigma and identified the impact that social stigma and self stigma can have on an individual. Pt provided examples of stigma impacted her and prevent her from getting proper treatment, accepting oppurtunities, accepting people's good intentions, and traveling. Stigma often led her to tell herself I'm crazy, unreliable, ignorant, stupid, and incapable. Client seemed to benefit from increased awareness of how mental health stigma can impact progress and self-worth. Will continue in IOP to prevent decompensation, maintain safety, increase healthy coping, stabilize mood, and improve functioning to return to work. Narrative Note: []
--- NOTE | 2023-05-02 11:12 | BH.SGPN.GN ---
Behaviors/Verbalizations/Mental Status: []Client alert and oriented, casually dressed and groomed. Eye contact good. Motor activity appropriate. Speech within normal limits. Affect congruent, mood anxious and content. Thoughts linear, logical, no signs of hallucinations or delusions. Client Response/Progress/Benefit:?[] Client engaged participant AEB participating in the activity, providing input during small group discussion, and listening attentively to others. Client appeared to connect with discussion in the benefits of addressing mental health stigma which included: improved relationships, increased willingness to seek help, increased happiness, and improved confidence. Group brainstormed strategies to combat social and perceived stigma. ?Client shared one thing she can personally do to combat stigma is to talk about mental health in a positive way and educate others on it. Appeared to benefit from increasing awareness of strategies to combat stigma. Will continue IOP tx to continue to reduce depression, improve emotion regulation and prevent decompensation. Narrative Note: []
--- NOTE | 2023-05-02 12:19 | PCM.BH.PSYEV ---
Psychiatric Evaluation Initial Evaluation Initial Evaluation: History of Present Illness/Interim History: [] The patient is a 17-year-old female who is seen in follow-up at the [facility] behavioral health [facility]. I last saw the patient 3 weeks ago at that time we started weaning the Effexor and started Seroquel 50 mg p.o. nightly. The patient has tolerated the decrease in Effexor well and states that she is compliant with the Seroquel. She says that her sleep was better at first but now after a few weeks her sleep has decreased again. She describes her mood is tense because she had a fall out with one of her good friends recently. She admits to hitting herself in the head once or twice but says that the injuries were not severe. She is thinking about moving in with her mother in [place] soon because she does not feel like her living with her father is benefiting her. According to the staff the patient has had some episodes of acting out and yelling and throwing things while in a room with her individual counselor. Patient admits that she always has passive thoughts of and often has passive, fleeting suicidal ideation. She denies active suicidal ideation, plan for suicide, homicidal ideation, hallucinations or delusions. Current Psychiatric Medications: [] Effexor XR 37.5 mg p.o. daily (decreased 3 weeks ago); Seroquel 50 mg p.o. nightly (x3 weeks) Mental Status Examination: [] The patient is a tall, thin female who appears normal for stated age and is casually dressed and groomed with good hygiene. She is ambulatory with a normal gait. She has mild psychomotor agitation and is bouncing her leg throughout the interview and fidgets with a fidget toy during the interview and her hands. She is cooperative during the interview. Eye contact is poor at times and the patient looks down through most of the interview which has been normal for her. Speech is normal rate and rhythm and fluent with no pressure. Mood is depressed. Affect is full and normal. Thought process is goal-directed and organized. Thought content: There is evidence of passive thoughts or thoughts of . There is evidence of passive, fleeting suicidal ideation off and on. There is no evidence of plan for suicide, homicidal ideation, hallucinations or delusions. Reality testing is intact. Telemetry intelligence is average. Judgment is intact. Impulsivity is high. Insight is limited. Diagnoses: [] 1. Bipolar, NOS 2. Anxiety disorder, NOS 3. Strong cluster B traits 4. Primary support, financial and work issues Plan: [] The patient will continue the IOP at [facility] as the structure, support, education and group therapy will hopefully prevent worsening of the patient's symptoms. She felt safe during the interview and if it anytime she does not feel safe she will let us know or go to the emergency room. The patient will continue her Effexor XR 37.5 mg and we may discontinue it in 2 weeks. She agrees to increase her Seroquel to 100 mg p.o. nightly. I will see the patient in 2 weeks and we may increase the Seroquel at that point further for mood stabilization. She will continue to follow-up with her outpatient providers and I will see the patient in follow-up in 1 to 2 weeks.
--- NOTE | 2023-05-02 15:58 | BH.MDN_ITS ---
Multi-Disciplinary Note Note 60-min Individual: Time Started:: 12:05 Date: 05/02/23 Purpose of session/treatment goals addressed:: To practice distress tolerance skills in the moment and to increase acceptance skills. Eye Contact:: Intense and Avoidant Motor Activity:: Restless Appearance:: Casual Speech:: Tangential and Rapid Mood:: Anxious, Irritable, Depressed and Other (motivated by the end) Affect:: Labile Thoughts:: Racing and Circular Staff Interventions:: thought challenging, motivational interviewing, psychoeducation on: (resentment, grief, and trauma), CBT techniques, mindfulness skills, discharge planning, strengths perspective, goal setting and taught coping skills (acceptance skills) Client Response:: Pt entered session agitated and requested a walk. Pt did well on the walk for a few minutes, but then therapist had to lead pt back into the building as pt was on the verge of tears and yelling. Pt was encouraged to utilize her healthy coping skills and pt did use deep breathing. Pt shared when she gets in that headspace of negativity and self-hate, I just don't want to do anything to help myself because nothing will work. Pt receptive to thought challenging and eventually calmed down. Pt could identify some positive things she did lately like baking cookies and cooking. Pt shared her biggest stressor right now is that her relationship with her father is not what pt wants it to be, so pt is considering moving in with her mother. Pt has described both of her parents as not healthy supports for her which makes pt tearful and agitated. Lack of support is a major barrier to progress and trigger for pt's hope lessness. Therapist and pt have talked about finding pt's chosen family and the benefits of pt participating in hobbies that could help pt join a community of like-minded people. Pt is receptive of this, but admits she struggles with follow-through. Pt asked therapist how do I stop resenting my parents? Pt gained awareness of the emotions underneath the resentment including constant disappointment, envy, and pain. Pt shared feeling like she constantly is trying to pour energy into changing them and wanting different which ultimately leaves pt drained and more resentful. Discussed the concept of acceptance and how this can help pt set some boundaries with herself and stop pouring energy into people who are not ready to be different. Pt responded well to this and she was less agitated and more hopeful by the end of session. Risks/Concerns:: Pt continues to have outbursts during individual sessions, but they are less intense than on 04/24/23. Pt is able to be redirected and she is less irritable towards therapist. Pt reports no active SI, plan, or intent as of 05/02/23. When pt becomes overwhelmed she will state I'm just done but then when pt calms down she does not feel that way. Future oriented. Medication was recently increased which will hopefully help the racing thoughts. Progress Toward Goals/Plan:: Pt's progress is mild overall as pt continues to self-report when I'm in a negative headspace I just don't want to get better. Pt admits that she has not reduced her marijuana use and pt continues to struggle with utilizing healthy coping skills consistently outside of IOP. Progress noted in pt's ability to regulate her emotions during group and self- report of taking her medications. However, pt continues to endorse mood instability, racing thoughts, and low distress tolerance. Pt's last week of IOP is next week as pt is reaching the maximum number of insurance days and IOP days . Pt got established with outpatient psychiatry and will be seeing Dr. Lima on07/02/23. Pt has an outpatient therapist, Tracy, but pt does not know when her next appointment is. Therapist will continue to help pt get established with aftercare. Pt will continue IOP tx to prevent decompensation, improve distress tolerance, and increase impulse control. Time Stopped:: 13:05
--- NOTE | 2023-05-07 10:09 | BH.COMM ---
Communication Note Communication with Client Communication Note: Spoke with pt on the phone. Pt stated she overslept and will not be in IOP today. Offered for pt to change days and attend tomorrow and pt was agreeable.
--- NOTE | 2023-05-08 09:05 | BH.SGPN.GN ---
Behaviors/Verbalizations/Mental Status: [] Eye contact is good. Motor activity is appropriate. Appearance is casual. Speech is Appropriate. Mood is anxious. Affect is congruent. Thoughts are linear and logical. No evidence of psychosis. Reviewed daily check in sheet and no reports of suicidal ideations or intent. Client Response/Progress/Benefit: [] Pt participated at times during the group discussion. Mental health wins include completing a difficult task and not freaking out. I was able to ask for help when frustrated which is not like me. Insight into the importance of seeking help. Group challenged belief that she Should be able to handle the stressful task. Challenged cognitive distortion in the moment which was progress for patient. Benefited from group support, encouragement, and feedback. Will continue in IOP to maintain safety, stabilize mood, and improve functioning. Narrative Note: []
--- NOTE | 2023-05-08 10:20 | BH.SGPN.GN ---
Behaviors/Verbalizations/Mental Status: []Pt alert and oriented, casually dressed and groomed. Eye contact good. Motor activity appropriate. Speech within normal limits. Affect congruent, mood anxious and euthymic. Thoughts linear, logical, no signs of hallucinations or delusions. Client Response/Progress/Benefit: []Pt was an active participant, AEB taking notes and providing input in group discussions and activities. Attentive during psychoeducation. Pt engaged during interactive discussion in which the group defined self-care and discussed its benefits. Group discussed barriers to engaging in self-care. Pt identified personal barrier of telling herself that she doesn't have time or becoming distracted by other things/thoughts which keeps pt from practicing self-care. Pt participated in small groups where they worked to identify common self-care ?myths?. Benefited from increased awareness of self-care, its benefits, and the consequences of not utilizing self-care strategies. Will continue IOP tx to prevent decompensation, promote healthy coping skill application, and continue to improve mood stability. Narrative Note: []
--- NOTE | 2023-05-08 11:15 | BH.SGPN.GN ---
Behaviors/Verbalizations/Mental Status: []Pt alert and oriented, casually dressed and groomed. Eye contact good. Motor activity appropriate. Speech within normal limits. Affect congruent, mood calm. Thoughts linear, logical, no signs of hallucinations or delusions. Client Response/Progress/Benefit: [] Pt engaged participant AEB completing self-assessment worksheet and providing input throughout discussion. Pt's mood and concentration were significantly improved in group today. Pt completed worksheet identifying current self-care practices and what self-care activities pt wants to start using. Pt selected social self-care to begin practicing more consistently. Pt plans to do this by trying to go to the library or record store more often as pt enjoys meeting new people. Appeared to benefit from completing the self-care evaluation and gaining insights into current self-care practices, as well as identifying areas in which pt would like to improve upon.? Pt will continue IOP tx to promote use of distress tolerance skills, improve daily functioning, and establish aftercare. ? Narrative Note: []
--- NOTE | 2023-05-08 14:10 | BH.MDN ---
Multi-Disciplinary Note Note 45-min Individual: Time Started:: 12:20 Date: 05/08/23 Purpose of session/treatment goals addressed:: To review progress, address current symptoms, and discuss upcoming discharge. Eye Contact:: Good Motor Activity:: Restless Appearance:: Casual Speech:: Appropriate Mood:: Euthymic and Anxious Affect:: Congruent Thoughts:: Linear, Logical and No evidence of hallucinations/delusions noted Staff Interventions:: thought challenging, mindfulness skills, discharge planning, strengths perspective and goal setting Client Response:: Pt responded well to session, open to meeting with therapist. Pt was much more relaxed and present during session today and pt did not have any outbursts which was significant progress. Pt even had an unexpected stressor happen during session which would have sent pt into a spiral in the past, but pt was able to process this calmly. Pt shared that her medication has been helping and she has been doing more self-care recently. Pt stated she baked twice this weekend and pt has been setting more boundaries. Pt also verbalized her needs with her dad and he responded positively which pt shared was a positive tape controlled machine stitcher. Pt understands it is her last week of IOP and pt was sad, but open to ideas for promoting mood stability. Pt also receptive to encouragement and gentle thought challenging today which had been a trigger for anger in the past. Pt shared her goal today is to practice more self-care and pt will attend IOP tomorrow and Sunday. Pt requested additional topic information on distortions, fear of failure, and nutritional psychiatry. Risks/Concerns:: pt's mood was more stable today. Pt's daily symptom tracker shows no risk for SI. Pt was future oriented and motivated. Progress Toward Goals/Plan:: Pt's progress has been mild overall, but today pt showed a lot of progress in session today with regulating her emotions. Pt reports that the medication increase has been helpful and pt is sleeping better. Pt's thought pattern also seemed less scattered and racing today which allowed pt to focus on an aftercare plan and set goals for the day/week. Pt also reports more motivation at home. Pt's mood is still depressed and pt reports feeling overwhelmed easily. Pt will continue IOP tx for two more days as pt establishes aftercare and to reinforce healthy coping skills. Time Stopped:: 13:00
--- NOTE | 2023-05-09 09:05 | BH.SGPN.GN ---
Behaviors/Verbalizations/Mental Status: []Pt alert and oriented, casually dressed and groomed. Eye contact good. Motor activity appropriate. Speech within normal limits. Affect congruent, mood euthymic and anxious. Thoughts linear, logical, no signs of hallucinations or delusions. Reviewed pt?s symptom tracker, no suicidal ideation reported, denies plan, or active intent as of 05/09/23. Client Response/Progress/Benefit: [] Pt responded well to session, open to processing with group and engaged. Pt reports feeling anxious this morning, explaining that this is related to addressing a misunderstanding which has resulted in conflict between pt and her cousin. Pt shared struggling with confrontation but is trying to use thought challenging and opposite action to communicate effectively about the matter. Receptive of support from the group on communication strategies. Shared her current mental health wins included completing several errands and challenging negative thoughts when forgetting something when trying to go to the bank. Additional win noted as taking time for herself and getting some plants she enjoys at the nursery. Discussed that she was able to do something for herself while also staying within her budget. Pt appeared to benefit from supportive feedback of the group, as well as reflecting on mental health wins. Pt will continue IOP tx to promote mood stability, continue to encourage skill application for mood management, as well as continue to improve functioning. Narrative Note: []
--- NOTE | 2023-05-09 11:15 | BH.SGPN.GN ---
Behaviors/Verbalizations/Mental Status: []Pt alert and oriented, casually dressed and groomed. Eye contact good. Motor activity appropriate. Speech within normal limits. Affect congruent, mood slightly agitated, mostly calm. Thoughts linear, logical, no signs of hallucinations or delusions. Client Response/Progress/Benefit: [] Pt was an active participant AEB providing input and was actively taking notes. Connected with the topic of pitfalls and listened to group discussion on internal and external barriers that prevent from choosing a healthier path to mental wellness. Group worked together to identify examples of personal internal pitfalls and pt identified theirs as not using coping skills, negative self-talk, lack of self-care, and isolation. Pt benefited from group as Pt learned to better identify and normalize potential barriers to improving mental health symptoms. Pt became frustrated during the activity and had to take a step back, but successfully returned to the activity. Pt will continue IOP tx to promote use of healthy coping skills, establish aftercare, and improve daily functioning. ??? Narrative Note: []
--- NOTE | 2023-05-09 11:20 | BH.SGPN.GN ---
Behaviors/Verbalizations/Mental Status: []Pt alert and oriented, casually dressed and groomed. Eye contact fair. Motor activity appropriate. Speech within normal limits. Affect labile. Mood irritable, anxious, and euthymic at times. Thoughts linear, logical, no signs of hallucinations or delusions. Client Response/Progress/Benefit: []Pt was an active participant AEB contribution to discussion, taking notes, and willingness to engage in group activity. Connected with the topic of pitfalls and listened to group discussion on internal and external barriers that prevent from choosing a healthier path to mental wellness. Group worked together to identify examples of internal pitfalls. Pt identified personal pitfalls. Pt reported wanting to work on pitfall of isolation. Pt identified strategies that can help her to include: being patient, keep in constant contact with therapy, asking for help, and communicating. Pt benefited from group as pt learned to better identify and normalize potential barriers to improving mental health symptoms. Pt to continue IOP to improve mood stability, challenge negative thinking, and prevent decompensation.
--- NOTE | 2023-05-10 09:05 | BH.SGPN.GN ---
Behaviors/Verbalizations/Mental Status: []Pt alert and oriented, casually dressed and groomed. Eye contact fair. Motor activity appropriate. Speech within normal limits. Affect congruent, mood depressed. Thoughts linear, logical, no signs of hallucinations or delusions. Reviewed pt?s symptom tracker, no suicidal ideation reported, denies plan, or active intent as of 05/10/23. Client Response/Progress/Benefit: []Pt responded well to session, attentive and engaged. Pt reports feeling distant and disgruntled this morning but pt shared this is because of her disorganization. Pt feels that she is doing better with using healthy coping skills and not letting things get to me as much. Pt shared her mother recently called her with a stressor and normally this would trigger a depressive episode for pt, but pt was able to set boundaries with herself towards mom. Pt also has been practicing healthy sleeping habits and feels that her medications are helping. Pt's stressor today is her difficulty with staying organized and being late as well as not knowing if she will move in with mom or not. Pt appeared to benefit from connecting with peers and reflecting on healthy coping skills they could use. Pt will continue IOP tx for one more day to establish aftercare and reinforce healthy coping skills. Narrative Note: []
--- NOTE | 2023-05-10 10:15 | BH.SGPN.GN ---
Behaviors/Verbalizations/Mental Status: [] Eye contact is good. Motor activity is appropriate. Appearance is casual. Speech is Appropriate. Mood is anxious. Affect is congruent. Thoughts are linear and logical. No evidence of psychosis. Client Response/Progress/Benefit: [] Pt participated in group discussions. Attentive during psychoeducation AEB note taking. Engaged during interactive discussion on the benefits vs disadvantages to anger, common ways that individuals express anger, and how anger can impact one's mental health. Group members brainstormed common internal and external triggers associated with anger which included; poor communication, being ignored, being disrespected, lack of personal follow-through with a task, laziness, dishonesty, injustice, falling short of one's goals, uncertainty, etc. Benefited from increased understanding of anger, internal/external triggers, and the impact that the anger cycle can have on anxiety and depression. Will continue in IOP to prevent decompensation, stabilize mood, and increase healthy coping. Narrative Note: []
--- NOTE | 2023-05-10 11:15 | BH.SGPN.GN ---
Behaviors/Verbalizations/Mental Status: []Client alert and oriented, casually dressed and groomed. Eye contact fair. Motor activity appropriate. Speech within normal limits. Affect congruent, mood euthymic, anxious at times. Thoughts linear, logical, no signs of hallucinations or delusions. Client Response/Progress/Benefit: []Pt was attentive throughout AEB contributing at times to small group discussion and self-reflection. Group finished processing cues to anger worksheet. Pt worked on completing own anger cycle. Pt completed personal anger cycle. Identified triggering event, negative thoughts, emotional response, physical symptoms, and behavioral response. Pt attentive as group brainstormed healthy coping skills for better managing anger which included: music, walking/exercise, taking a break, grounding tools, reflection, and journaling. Pt worked in small groups to identify ways could interrupt her anger cycle. Stated she wants to work on asking for help and self-reflection to help interrupt her anger cycle. Pt appeared to benefit from identifying different techniques to manage anger as well as gaining awareness of potential consequences of unmanaged anger. Will continue IOP tx to improve mood stability, improve view of self, and prevent decompensation.
--- NOTE | 2023-05-11 09:13 | BH.AFTERPLAN ---
Aftercare Plan Demographics Treatment End Date:: 05/11/23 Psychiatrist:: Norma Servin Psychiatrist Office #:: [phone] [facility]/IOP Therapist:: Luz Elena Aviles Therapist Phone #:: [phone] Medications Home Medications clonazepam 0.5 mg tablet (Klonopin) 0.5 mg PO DAILY PRN anxiety 03/21/23 venlafaxine 37.5 mg capsule,extended release 24 hr (Effexor XR) 37.5 mg PO DAILY 30 days #30 caps 04/11/23 quetiapine 100 mg tablet (Seroquel) 100 mg PO QHS 30 days #30 tabs 05/02/23 Plan Details Progress/Aftercare Plan Details:: Lolis has responded well to treatment as evidenced by Lolis consistently attending IOP sessions and her reduction of DSM-5 scores since admission. Lolis was attentive and receptive to learning during group and individual sessions. Lolis had ups in downs in tx like most pts, but Lolis gained many skills and saw progress. Lolis?s overall symptom reduction is 28% since admission with depression decreasing by 20% anxiety decreasing by 42%, and unpleasant thoughts and urges decreasing by 75%. Lolis worked hard to improve her emotional regulation and impulse control. Strategies for Success:: 1. Opposite action! Continue to break that cycle of anxiety and depression by not letting emotions be the only drivers of your bus. 2. Remember that thoughts are thoughts NOT facts! You have power in if you give thoughts the time of day or not. 3. self-care! You deserve to take time for you and you also deserve to face the not so fun self-care like sitting with the uncomfortable 4. Self-compassion! You are human and you will make a mistake?BUT that doesn?t mean you are a failure or not good enough. Give yourself credit for all the wonderful things you do. 5. continue to catch negative self-talk and talk to your inner child. What does she need to hear today? 6. Practice positive self-talk and keep track of your wins. 7. Remember progress isn?t linear! You may have a setback or bump in the road, but that doesn?t mean you?ve lost all progress. 8. You are leaving behind your old planet and the old rules, you are allowed to form new ones! 9. Delay, Distract, Decide 10. Live in the huang!! Appointments Appointments/Referrals to Other Services:: 1. Dr. Lima for medication management 07/02/23 2. IOP aftercare group at [facility] starting 05/17/23 for 8 weeks 3. Follow up with either Tracy or Ada Stanley for individual therapy.
--- NOTE | 2023-05-11 09:20 | BH.DS ---
Discharge Summary Demographics Date of Admission:: 03/20/23 Discharge Date: 05/11/23 Presenting Problems at Admission:: pt is a 17-year-old female with history of DAVID, c-PTSD, and bipolar NOS. Pt was referred to [facility] by [facility] Crisis team due to crisis assessment on 02/24/23. At that time, pt was endorsing an erratic mood, panic attacks, and yelling. Pt has no history of violence, but she has been having emotional attacks where pt feels highly irritable. Pt currently endorses a depressed mood, lack of energy, poor sleep, crying spells, extreme forgetfulness, lashing out, lack of concentration, and chronic thoughts of . Pt shared she feels disorganized all the time and states she is constantly late to places because of her forgetfulness. Pt has history of eric, but pt has not had a manic episode since winter 2021. Pt also states her mental health symptoms impact her ability to function at home, work, and socially. Discharge Diagnoses:: Bipolar, NOS F31.81; Anxiety disorder, NOS; Strong cluster B traits Reason for Discharge:: Pt has received maximum benefit from [facility] tx and will discharge to outpatient counseling and psychiatry. Pt has made some progress in IOP AEB her overall DSM-5 symptom reduction by 28%. Treatment Progress During Treatment & Response: Pt responded mostly well to treatment as evidenced by Pt consistently attending IOP sessions and her reduction of DSM-5 scores since admission. Pt struggled with impulse control and outbursts during individual sessions, but once started 100mg of Seroquel, her moods became more stable. Pt was attentive and receptive to learning during group and individual sessions. Pt had ups in downs in tx like most pts, but Pt gained many skills and saw mild progress. Pt?s overall symptom reduction is 28% since admission with depression decreasing by 20% anxiety decreasing by 42%, and unpleasant thoughts and urges decreasing by 75%. Pt?s impulse control improved from admission to discharge, but pt?s distress tolerance is still low and pt can benefit from continuing to improve this. Issues Still to be Addressed:: Pt can continue to work on distress tolerance skills to reduce intensity of emotions and outbursts, reduce chronic suicidal ideations, and improve impulse control. Pt encouraged to continue taking her mood stabilizer as this has significantly helped reduce pt's racing thoughts and helped with emotional regulation. Pt can also benefit from working on developing healthier core beliefs and catching negative self-talk. Pt could benefit from trauma therapy in the future with recommendation by her outpatient providers. Pt's marijuana use had reduced since admission, but pt admits she was still smoking daily which impacts her motivation levels and has prevented pt from practicing healthy calming skills. Pt is working on developing more social supports and pt can benefit from continuing to learn about and practice healthy boundary setting. Discharge Recommendations/Instructions:: Pt has a PCP that had been doing pt's medication management, but now that pt is on a mood stabilizer, pt will be seeing Dr. Lima. Pt's first appointment is 07/02/23. Pt has refills on her medications that will last until she is seen by Dr. Lima. Pt's outpatient therapist, Tracy, has reached out to pt to schedule an appointment, but pt has not yet responded. Pt encouraged to do this today and therapist will follow up with pt next week. Pt stated the ball is in my court as her outpatient therapist has reached out a few times. Pt did not want this therapist to schedule for pt. Pt also given resources for Ada Stanley who does trauma therapy and EMDR in [place]. Pt will start IOP aftercare group on 05/17/23 so if pt does not have an appointment scheduled by then, therapist will remind pt. Discharge Handout
--- NOTE | 2023-05-11 10:10 | BH.SGPN.GN ---
Behaviors/Verbalizations/Mental Status: [] Eye contact is good. Motor activity is appropriate. Appearance is casual. Speech is Appropriate. Mood is anxious. Affect is congruent. Thoughts are linear and logical. No evidence of psychosis. Client Response/Progress/Benefit: [] Pt was an active participant in group discussions. Attentive during psychoeducation AEB by note taking. Pt worked along with her peers in small groups and worked to define guilt, inappropriate guilt, and appropriate guilt. Interactive discussion on examples of both inappropriate and appropriate guilt. Pt identified a personal example of how guilt impacted her life stating moving slowly and telling people no and not trusting people. Benefited from increased awareness of guilt and the differences between appropriate and inappropriate guilt. Today is pt's last day of IOP as she is set to discharge this afternoon. Narrative Note: []
--- NOTE | 2023-05-11 11:15 | BH.SGPN.GN ---
Behaviors/Verbalizations/Mental Status: []Pt alert and oriented, neatly dressed and groomed. Eye contact good. Motor activity appropriate. Speech within normal limits. Affect congruent, mood content. Thoughts linear, logical, no signs of hallucinations or delusions. Client Response/Progress/Benefit: []Pt engaged participant AEB listening attentively to others and providing input throughout group. During challenge activity pt worked cooperatively with small group. Pt made connection that it takes patience, willingness to be uncomfortable, and problem solving to work through appropriate and inappropriate guilt. Pt worked with their small group to identify strategies to manage inappropriate guilt. Pt stated pt often feels inappropriate guilt when setting boundaries and being assertive. Pt wants to work on this by continuing to enforce boundaries rather than giving in out of fear and guilt. Pt seemed to benefit from learning about strategies to manage appropriate and inappropriate guilt. Pt will discharge from IOP tx as pt has accomplished her tx goals and reached maximum benefit from tx. Narrative Note: []
== END 2023-05-14 06:50 | disposition home or self-care (01) ==
LOC: BHIOP 08:29
PROVIDERS: PCP Nurse Practitioner Family; Referring Provider Psychiatry & Neurology Psychiatry; Visit Provider Psychiatry & Neurology Psychiatry
DX: F31.81 Bipolar II disorder (principal); F41.9 Anxiety disorder, unspecified
CPT/HCPCS: S9480; 90832; 90834; 90837; 90853

== ENCOUNTER 2023-05-31 14:00 | Outpatient (RCR) | payer OTHER, SELFPAY ==
--- NOTE | 2023-05-31 14:00 | BH.SGPN.GN ---
Behaviors/Verbalizations/Mental Status: []Pt alert and oriented, neatly dressed and groomed. Eye contact good. Motor activity appropriate. Speech within normal limits. Affect congruent, mood euthymic. Thoughts linear, logical, no signs of hallucinations or delusions. Client Response/Progress/Benefit: [] Pt receptive of session, engaged throughout. Pt reports she is consistent with medications and she scheduled an appointment with her outpatient therapist. Pt reports use of delay, distract, decide to reduce smoking and she has been successful in reducing her marijuana intake. Receptive of discussion on personal accountability and its importance in maintaining mental health stability. Engaged in brainstorming strategies for improving ability to hold themselves accountable. Reported wanting to work on improving her bedtime routine by adding small chores that will help pt in the morning. Pt wants to jayson a sticker chart as pt feels she is visually driven and this will help her. Pt seemed to benefit from support from peers and increasing understanding of personal accountability benefits and strategies. Will continue IOP aftercare group to maintain gains and prevent decompensation. Narrative Note: []
--- NOTE | 2023-05-31 14:00 | BH.COMM ---
Communication Note Communication with Client Communication Note: Patient completed IOP and presents today to start relapse prevention group which meets once weekly (1.5 hours) for 8 weeks. Case discussed with Dr. Goins with plan to admit with dx of F31.67
--- NOTE | 2023-05-31 16:25 | BH.MTP ---
Master Treatment Plan Patient Information Program Physician:: Dr. Norma Servin Primary Therapist:: Luz Elena VILLAFANA Psychiatric Diagnoses Psychiatric Diagnoses:: Bipolar, NOS F31.81; Anxiety disorder, NOS; Strong cluster B traits; c-PTSD Diagnosis Code(s):: F 31.81 Estimated LOS Estimated LOS (in weeks):: 8 Problem/Goal #1 Problem/Goal #1 Stated Goal:: client will maintain or see a reduction in symptoms AEB client score on the DSM 5 cross-cutting measure and improve client's daily functioning. Objectives Objective #1: Stated Objective: Client will continue to consistently apply healthy coping skills to maintain progress made in IOP tx. Interventions: Through group therapy, client will review warning signs and triggers as well as healthy coping skills learned in IOP tx to successfully maintain gains while transitioning into outpatient therapy. Discharge Criteria: Client will have accomplished this goal when client's score on the DSM-5 cross-cutting measure has maintained or reduced over a 8 week period. Target Date: 07/26/23 Review Date: 06/28/23 Status: open Objective #2: Stated Objective: Client will learn and utilize 2-3 maintenance strategies to prevent decompensation from original IOP DSM-5 scores. Interventions: Through group therapy, client will be provided with education on healthy maintenance behaviors, relapse prevention techniques, and healthy coping strategies. Discharge Criteria: Client will have accomplished this goal when can report using at least 2 maintenance skills to prevent decompensation compared to original IOP DSM-5 scores Target Date: 07/26/23 Review Date: 06/28/23 Status: open
--- NOTE | 2023-06-07 14:00 | BH.SGPN.GN ---
Behaviors/Verbalizations/Mental Status: []Client alert and oriented, casually dressed and groomed. Eye contact good. Motor activity appropriate. Speech within normal limits. Affect congruent, mood euthymic and anxious. Thoughts linear, logical, no signs of hallucinations or delusions. Client Response/Progress/Benefit: []Receptive of session, engaged throughout. Pt reports she has remained consistent in attending outpatient counseling and psychiatry appointments, as well as maintaining medication compliance. Noted use of positive self-talk, opposite action, and personal accountability as coping skills aiding in ongoing mental health maintenance. Engaged and attentive during discussion of vulnerability and benefits of practicing vulnerability. Shared being vulnerable has not been easy for her as she struggles with fear that she will get hurt. Group discussed ways we avoid feeling vulnerable and how this negatively affects mental health and relationships. Appeared to benefit from group support and discussion reflecting on the positive impact vulnerability can have on mental health. Identified plans to challenge herself to say ?yes? to plans with friends as a way in which she could practice being vulnerable in the next week. Pt will continue with aftercare tx to maintain gains and prevent decompensation. Narrative Note: []
--- NOTE | 2023-06-08 11:49 | BH.COMM ---
Communication Note Communication with Client Communication Note: Pt reports that she picked up 30 day supply of Seroquel which was called in by program nurse 2 weeks ago. She has appointment set up with Dr. Lima for follow-up psychiatry on 07/01/23. She shared with staff today at [facility] that she had accidently dropped half of my pills into her cat's litter box and for obvious reasons does not want to utilize those medications. Without her mood stabilization medications pt would most likely decompensate. Reviewed event with Dr. Saxena. No hx of medication abuse or indication of substance abuse therefore she was agreeable with refilling the script and nurse called this into pharmacy.
--- NOTE | 2023-06-14 14:00 | BH.SGPN.GN ---
Behaviors/Verbalizations/Mental Status: []Pt alert and oriented, disheveled appearance. Eye contact fair. Motor activity restless. Speech quiet and then yelling at one point. Affect labile, mood agitated and irritable. Thoughts linear, logical, no signs of hallucinations or delusions. Client Response/Progress/Benefit: [] Pt responded well to session, Pt reports ?mostly? taking her medications and pt stated she has an appointment next week with her therapist. Pt could not identify anything she deserved credit for today and appeared distracted in group. Pt connected with the benefits of self-compassion and participated in the activity of reframing a recent setback using self-compassion. Pt used self-compassion to combat negative self-talk, but this appeared to trigger Pt. Pt became agitated and started raising her voice while talking about how she is just a terrible person.?Pt responded well to therapist gently challenging pt?s negative thinking patterns. Pt appeared to benefit from practicing self-compassion and connecting with peers. Will continue to IOP aftercare and will monitor to see if pt?s symptoms continue to decompensate. If pt?s symptoms worsen, pt will be referred to a higher level of care than aftercare group. Narrative Note: []
--- NOTE | 2023-06-14 16:26 | BH.DS_ITS ---
Discharge Summary Demographics Date of Admission:: 05/31/23 Discharge Date: 06/14/23 Presenting Problems at Admission:: Pt discharged from IOP tx and transitioned to IOP aftercare to maintain gains pt made in IOP and to reinforce healthy coping skills. At admission, pt was still experiencing mood instability with low distress tolerance. Pt was also working on reducing marijuana use, increasing social support, and returning to old hobbies she enjoys. Discharge Diagnoses:: Bipolar, NOS F31.81; Anxiety disorder, NOS; Strong cluster B traits; c-PTSD Reason for Discharge:: Pt was discharged due to IOP aftercare not having enough participants to consistently run group. Pt will follow up with her outpatient therapist at [facility] and Dr. Lima for medication management. Treatment Progress During Treatment & Response: Unfortunately, due to low numbers, pt was unable to complete IOP aftercare and accomplish her 8 week tx goals. Pt's continued to struggle with erratic moods and negative thinking patterns. Pt did report benefitting from her medications. Issues Still to be Addressed:: Pt can continue to work on distress tolerance skills to reduce intensity of emotions and outbursts, reduce chronic suicidal ideations, and improve impulse control. Pt encouraged to continue taking her mood stabilizer as this has significantly helped reduce pt's racing thoughts and helped with emotional regulation. Pt can also benefit from working on developing healthier core beliefs and catching negative self-talk. Pt could benefit from trauma therapy in the future with recommendation by her outpatient providers. Pt's marijuana use had reduced since admission, but pt admits she was still smoking daily which impacts her motivation levels and has prevented pt from practicing healthy calming skills. Pt is working on developing more social supports and pt can benefit from continuing to learn about and practice healthy boundary setting. Discharge Recommendations/Instructions:: Dr. Lima for medication management. First appointment is 07/02/23. Pt also has an outpatient therapist at [facility]. Discharge Handout
== END 2023-06-26 23:59 ==
LOC: BHOG 14:00
PROVIDERS: PCP Nurse Practitioner Family; Referring Provider Psychiatry & Neurology Psychiatry; Visit Provider Psychiatry & Neurology Psychiatry
DX: F31.81 Bipolar II disorder (principal); F41.9 Anxiety disorder, unspecified
CPT/HCPCS: 90853

== ENCOUNTER 2023-06-27 06:51 | Outpatient (RCR) | payer OTHER, SELFPAY | END 2023-07-13 07:57 | disposition home or self-care (01) | LOC: BHOG 06:51 | PROVIDERS: PCP Nurse Practitioner Family; Referring Provider Psychiatry & Neurology Psychiatry; Visit Provider Psychiatry & Neurology Psychiatry | DX: F31.81 Bipolar II disorder (principal) ==

== ENCOUNTER → 2023-12-19 | Outpatient (CLI) | payer OTHER, MEDICAID, SELFPAY ==
--- NOTE | 2023-12-19 07:48 | CT_ITS ---
INDICATION: Known LLL nodule EXAMINATION: CT CHEST WITHOUT CONTRAST - CT Chest W/O Contrast Injection TECHNIQUE: Helically acquired images were obtained of the chest. A radiation dose optimization technique was used for this scan. IV Contrast dosage and agent: None. COMPARISON: None. FINDINGS: LUNGS, PLEURA AND LARGE AIRWAYS: Lung windows show a soft tissue mass in the left lower lobe measuring 1.5 x 1.1 x 0.9cm. It contains a central calcification suggesting this is a granuloma. A one-year follow-up could be performed to assess stability THYROID: No thyroid lesions. HEART AND PERICARDIUM: Heart size is normal. No pericardial effusion. CORONARY ARTERIES: Coronary artery calcification VESSELS: Thoracic aorta is not dilated. MEDIASTINUM AND MARLENY: No mediastinal or hilar adenopathy. Esophagus is unremarkable. No hiatal hernia. UPPER ABDOMEN: No acute pathology. BONES: No suspicious lytic or blastic abnormality. CT/Chest without Contrast IMPRESSION: There is a well-defined noncalcified nodular density in the left lower lobe measuring approximately 1.5 x 1.1 x 0.9 cm, this contains a central calcification suggesting it is a granulomatous process. Since there are no previous studies available for comparison and there is no suspicious medical history, no specific follow-up is needed. If clinically concerned, a one-year follow-up study could be performed to assess stability No superimposed infiltrate or effusion No suspicious adenopathy Electronically Signed: Fortunato Cabrera MD at 13:06 EDT ,
== END | disposition home or self-care (01) ==
LOC: CT 07:45
PROVIDERS: PCP Nurse Practitioner Family; Referring Provider Internal Medicine Critical Care Medicine; Visit Provider Internal Medicine Critical Care Medicine
DX: R91.1 Solitary pulmonary nodule (principal)
CPT/HCPCS: 71250

== ENCOUNTER → 2024-01-08 | Outpatient (CLI) | payer OTHER, MEDICAID, SELFPAY ==
--- NOTE | 2024-01-08 12:00 | PET_ITS ---
EXAMINATION: FDG PET-CT INDICATIONS: A 18-year-old female with a history of pulmonary nodularity. COMPARISON EXAMINATION: None available. INDEX LESION SIZE SUV INTERPRETATION Left lower lung field, left lower lobe 17.3 mm 4.3 Fulfills quantitative criteria for viable neoplasm, histopathologic analysis is recommended. Left thoracic perihilum 28.1 mm 5.5 Fulfills quantitative criteria for viable neoplasm. TECHNIQUE: Following the intravenous administration of 14.19 mCi of F-18 deoxyglucose via the right antecubital fossa, multiplanar image acquisitions of the head, neck, chest, abdomen and pelvis to level of mid-thigh, lower extremities obtained at one hour post radiopharmaceutical administration contemporaneously interpreted with the current CT of the head, neck, chest, abdomen and pelvis to level of mid-thigh, lower extremities dated 01/08/24 via coregistration reveal: SERUM GLUCOSE LEVEL: 98 mg/dl. HEIGHT: 67 inches. WEIGHT: 129 lbs. FINDINGS: Head/Neck: There is no evidence of abnormal increased glucose metabolism in the pharyngeal mucosal space, parapharyngeal space, bilateral-lateral and anterior neck, hypopharynx and distribution of the laryngeal structures. The visualized portion of the cerebral cortical-subcortical structures demonstrate symmetric and preserved glucose metabolism. Prominent foci of increased tracer uptake are noted in the bilateral lateral neck corresponding anatomic correlate most consistent with visualization of brown adipose tissue. CHEST: There is a nodular focus of increased tracer uptake noted in the left lower posterolateral lung zone, left lower lobe generating a calculated maximum standard uptake value of 4.3. The maximum axial diameter of the metabolic, morphologic abnormality is 17.3 mm. Facilitated FDG concentration is manifest in the left thoracic perihilum generating a calculated maximum standard uptake value of 5.5. The maximum axial diameter of the metabolic, morphologic abnormality is 28.[address] findings are as follows. Dense subcutaneous tissue is noted in the bilateral breast without evidence of focal increased tracer uptake. Bilateral axillary soft tissue densities reveal no evidence of increased tracer uptake. There are no additional parenchymal densities-nodules defined in the right and left hemithorax with quantitatively significant increased FDG uptake. There is atherosclerotic calcification defined in the thoracic aorta without evidence of dilatation-aneurysm formation. Coronary arterial calcification is observed. Abdomen/Pelvis: Normal physiologic distribution of the radiopharmaceutical is apparent in the hepatic (2.6) and splenic parenchyma, both renal units, bladder and visualized intestinal tract. Diffuse radiopharmaceutical concentration is noted in all four quadrants of the abdomen and pelvis. The left renal unit demonstrates prominent collecting system activity extending from the left renal pelvis to the ureterovesical junction. Pertinent abdomen and pelvis CT findings are as follows. There is atherosclerotic calcification defined in the abdominal aorta without evidence of dilatation-aneurysm formation. Abdominal-pelvic arterial calcification is defined. Colonic diverticula are defined without evidence of diverticulitis. Right and left inguinal soft tissue densities with expressed fatty hilus formation are ametabolic. Skeletal: There is no visualized sclerotic-lytic changes manifest on review of the appendicular-axial skeletal structures. PET/PET/CT Tumor Base -Thigh Init IMPRESSION: 1. The increase in radiopharmaceutical concentration defined in the left lower lung field, left lower lobe fulfills quantitative criteria for viable neoplasm with single point technique. Histopathologic sampling is recommended. 2. Facilitated uptake noted in the left thoracic perihilum fulfills quantitative criteria for malignant transformation. Electronic Signature Jose Cruz Ram D.O. Accurate Quantification of SUVs for this report are calculated using the exclusive [employer], ([place] Patent No. [phone] [place] patent [phone] ). Standardization and correction of the FDG SUV metric exclusively available with [employer] intellectual property, allow for vendor non-specific objective quantitative sequential FDG PET-CT comparison and otherwise unobtainable optimization of the sensitivity and specificity of the examination. [email or web address] Electronically Signed: Jose Cruz Ram DO at 23:25 EDT ,
== END | disposition home or self-care (01) ==
PROVIDERS: PCP Nurse Practitioner Family; Referring Provider Nurse Practitioner Acute Care; Visit Provider Nurse Practitioner Acute Care
DX: R91.8 Other nonspecific abnormal finding of lung field (principal)
CPT/HCPCS: 78815; A9552

== ENCOUNTER → 2024-01-17 | Outpatient (CLI) | payer OTHER, MEDICAID, SELFPAY ==
[2024-01-17 11:39] LABS: Platelet Count 243 K/mm3 (150-450)
[2024-01-17 11:50] LABS: International Normalized Ratio 1.1; Partial Thromboplast Time 30.3 Seconds (24.1-36.2); Prothrombin Time (Protime)PT. 14.5 SECONDS (11.7-14.9)
== END | disposition home or self-care (01) ==
LOC: PAVLAB 10:46
PROVIDERS: PCP Nurse Practitioner Family; Referring Provider Nurse Practitioner Acute Care; Visit Provider Nurse Practitioner Acute Care
DX: R91.1 Solitary pulmonary nodule (principal); Z13.0 Encounter for screening for diseases of the blood and blood-forming organs and certain disorders involving the immune mechanism
CPT/HCPCS: 36415; 85049; 85610; 85730

== ENCOUNTER → 2024-01-30 | Outpatient (CLI) | payer OTHER, MEDICAID, SELFPAY ==
[2024-01-30] VITALS (18 sets, daily range): BP systolic 93–117; BP diastolic 58–78; PULSE 50–70; RESP 12–18; TEMP 36.7; O2SAT 9–100
--- NOTE | 2024-01-30 | ASPIGT_PTH ---
PATIENT: CORINA ROSA LOC: CT U#:[id number] AGE/SX: 18/F ROOM: RE01/30/[address]: JULIUS Vigil : 2005 BED: DIS: 01/30/2024 SPEC #: [id number] RECD: 01/30/24 10:54 STATUS: MILADYS REChrista #: [id number] WILMAN: 01/30/24 00:[address]: Layne Brown NP DEPT: SURGICAL PATHOLOGY RECD BY: Felicita Hamlin ENTERED: 01/30/24 12:34 SP TYPE: ASP RAD OTHR DR: JULIUS Coe Tissues: Lung, NOS Procedures: FNA Specimen Adequacy Special Stain Group II Surgery Specimen Level IV Imprint (control) HEADER OPERATION: Ct guided lung biopsy PRE-OP DIAGNOSIS: Left lower lung nodule TISSUE SUBMITTED: 20 gauge x5 cores MICROSCOPIC DIAGNOSIS Left lower lung nodule, CT guided core biopsy: Lung parenchymal tissue with infarction, fibrosis and focal areas of necrotizing granuloma formation. Negative for malignancy. See comment. / 01/31/2024 COMMENT Special stains for acid fast bacilli and fungi are negative for organisms; matched controls are appropriate. Trichrome, reticulin, elastin and iron stain with matched controls are also used in the evaluation of the specimen. Case has been reviewed in consultation with Dr. Mcnally who concurs with the above diagnosis. IDC:AM Correlation with clinical, radiologic findings and appropriate follow up are necessary. The specimen is evaluated at the time of biopsy by Dr. Bynum. Immediate Evaluation = Negative for malignant cells. Numerous inflammatory cells are noted. MICROSCOPIC DESCRIPTION Slides are reviewed. GROSS DESCRIPTION Received in fixative is one container labeled with the patient's name and designated Left lower lobe lung. The specimen consists of multiple fragments of wilson soft tissue in aggregate 1.0 x 0.2 x <0.1cm. The entire specimen is submitted in one cassette. Two touch imprints are prepared at the time of core biopsy. / 01/30/2024 TC:3 CPT:86421 ,[id number], [id number] x2
[2024-01-30] MEDS: 0.9% Normal Saline (250mL Bag) 250 ML 15 ML IV (10:00)
[2024-01-30] MEDS: Midazolam 2 MG/2 ML Syringe IV ×2 (10:24→10:37)
[2024-01-30] MEDS: fentaNYL 100 MCG/2 ML Ampul IV (10:25)
--- NOTE | 2024-01-30 10:25 | CT_ITS ---
PROCEDURE: CT GUIDED CORE NEEDLE BIOPSY OF A left lower lobe LUNG LESION INDICATION: Female, 18 years old. LLL lung nodule PHYSICIAN: Dr. Enedina Nieves CONSENT: Written informed consent was obtained having explained the risks, benefits and alternatives in detail with the patient who accepted the risks and agreed to proceed. Laboratory review and clinical assessment was performed. CONSCIOUS SEDATION PROTOCOL: The Drugs used were: 2 mg Versed, IV., and 50 mcg Fentanyl, IV. The sedation time was: 25 minutes. Conscious sedation was started 10:25 AM and terminated at 10:50 AM. The conscious sedation protocol was independently monitored. RADIATION DOSAGE (If Supplied By Facility): CTDIvol = ( 14.5 ) mGy, DLP = ( 225.95 ) mGycm. Individualized dose optimization techniques were utilized. Individualized dose optimization techniques were used for this CT. TECHNIQUE: The patient was placed in the prone position. A noncontrast CT was performed to localize the lesion in the posterior aspect of the left lower lobe . The skin surface was prepped and draped in a sterile fashion. 1% lidocaine was used for local anesthesia. Using CT guidance, a 20 coaxial biopsy device was advanced to the periphery of the lesion. A total of 5 core specimens were obtained. The specimens were placed in a formalin solution. A post procedure CT demonstrated no adverse sequelae or pneumothorax. The patient tolerated the procedure well without adverse event. A negative biopsy does not exclude malignancy. Further imaging or clinical followup based on patient condition and degree of clinical suspicion for malignancy. Suggest rebiopsy, if biopsy results do not match with clinical scenario. CT/Biopsy/Inj or Needle Placement IMPRESSION: 1. CT directed core needle biopsy of the left lower lobe pulmonary nodule using CT image guidance with image documentation as described. Pathology results are pending. 2. Conscious Sedation protocol utilized with independent monitoring. Electronically Signed: James Mcconnell MD at 13:04 EDT ,
[2024-01-30] MEDS: 0.9% Saline Lock 10 ML Syringe IV (10:35)
[2024-01-30] MEDS: Lidocaine 2% (20 ml mdv) 20 ML Vial INFILT (10:40)
--- NOTE | 2024-01-30 10:50 | RAD_ITS ---
STUDY: X-RAY CHEST REASON FOR EXAM: Female, 18 years old. Immediately post lung biopsy -- Immediately post lung biopsy TECHNIQUE: AP inspiration and expiration views. COMPARISON: None. FINDINGS: No evidence of pneumothorax on the immediate post right lung biopsy radiographs. RAD/Chest Insp/Exp 2 View IMPRESSION: No evidence of pneumothorax on the immediate post right lung biopsy radiographs. Electronically Signed: James Mcconnell MD at 11:36 EDT ,
--- NOTE | 2024-01-30 12:55 | RAD_ITS ---
STUDY: X-RAY CHEST REASON FOR EXAM: Female, 18 years old. 2 hours post lung biopsy -- 2 hours post lung biopsy TECHNIQUE: AP inspiration and expiration views. COMPARISON: Comparison is made with prior study done earlier today. FINDINGS: No evidence of pneumothorax on the 2 hour post left lung biopsy radiographs . RAD/Chest Insp/Exp 2 View IMPRESSION: No evidence of pneumothorax on the 2 hour post left lower lobe see radiographs. Electronically Signed: James Mcconnell MD at 13:21 EDT ,
--- NOTE | 2024-01-30 12:58 | NURSING ---
2ND CXR COMPLETED.
== END | disposition home or self-care (01) ==
LOC: CT 08:57
PROVIDERS: PCP Nurse Practitioner Family; Referring Provider Nurse Practitioner Acute Care; Visit Provider Nurse Practitioner Acute Care
DX: R91.8 Other nonspecific abnormal finding of lung field (principal); R91.1 Solitary pulmonary nodule
CPT/HCPCS: 32408; 71046; 77012; 88172; 88305; 88313; 99156; J7050; A4216; C2613

== ENCOUNTER → 2024-02-07 | Outpatient (CLI) | payer OTHER, MEDICAID, SELFPAY ==
[2024-02-11 11:08] LABS: Cytoplasmic Ab (C-ANCA) <1:20 titer (Neg:<1:20); Perinuclear Ab (P-ANCA) <1:20 titer (Neg:<1:20); QNTFERON TB Mitogen Value > 10.00 IU/mL (.); QNTFERON TB Nil Value 0.02 IU/mL (.); QNTFERON TB1+ Ag Value 0.02 IU/mL (.); QNTFERON TB2+ Ag Value 0.03 IU/mL (.); QNTIFERON TB Positive Criteria Negative (Negative)
== END | disposition home or self-care (01) ==
LOC: PAVLAB 09:47
PROVIDERS: PCP Nurse Practitioner Family; Referring Provider Nurse Practitioner Acute Care; Visit Provider Nurse Practitioner Acute Care
DX: R91.1 Solitary pulmonary nodule (principal)
CPT/HCPCS: 36415; 86256; 86480